=== PATIENT | male | born 1935 | race Caucasian/White ===

== ENCOUNTER → 2018-01-02 09:03 | Outpatient (CLI) | payer MEDICARE, SELFPAY ==
[2018-01-02 10:37] LABS: Absolute Lymphocyte Count 1.95 X10^3/ul (0.83-4.51); Absolute Neutrophil Count 4.1 X10^3/uL (2.0-7.7); Basophil# 0.04 X10^3/uL; Basophil% 0.6 % (0-1); Eosinophil# 0.45 X10^3/uL; Eosinophils% 6.4 % (0-5); Hematocrit 41.9 % (40-54); Hemoglobin 13.9 g/dl (13.0-16.5); Lymphocyte # 1.95 X10^3/ul (4.0); Lymphocyte % 27.8 % (19-41); Mean Corp Hgb Conc 33.2 g/gl (32-36); Mean Corpuscular Hgb 29.6 pg (27.0-32.0); Mean Corpuscular Volume 89.1 fL (80-94); Mean Platelet Vol. 10.8 fl (6.2-12.0); Monocyte# 0.44 X10^3/uL; Monocyte% 6.3 % (0-10); Neutrophil # 4.12 X10^3/uL (2.7-7.7); Neutrophil % 58.6 % (47-70); Platelet Count 191 K/mm3 (150-450); RBC Distribution Width CV 14.1 % (11.6-14.6); RBC Distribution Width SD 45.5 fl (35.1-43.9)
[2018-01-02 10:39] LABS: POSITIVE COUNT NO; POSITIVE DIFFERENTIAL NO; POSITIVE MORPHOLOGY NO
[2018-01-02 10:55] LABS: Anion Gap 8 (5-15); BUN 23 mg/dL (7-18); BUN/Creat Ratio 15.2 RATIO (10-20); Calcium,Total 9.3 mg/dL (8.5-10.1); Chloride 107 mmol/L (98-107); Creatinine, Serum 1.51 mg/dL (0.70-1.30); EST Glomerular Filtration Rate 47 mL/min (>60); Est Glom Filt Rate - Afr Amer 57 mL/min (>60); Ferritin 123 ng/mL (26-388); Glucose 104 mg/dL (74-106); Potassium 4.2 mmol/L (3.5-5.1); Sodium Level 140 mmol/L (136-145); T4 Free Direct 0.95 ng/dL (0.76-1.46); Thyroid Stim Hormone (TSH) 4.84 uIU/mL (0.358-3.74)
[2018-01-02 11:09] LABS: Microalbumin,Random Urine 11.5 mg/L (NO RANGE EST.); Microalbumin:Creatinine Ratio 10.6 mg/g CRE (<30 mg/g CRE)
== END ==
PROVIDERS: Visit Provider Family Medicine
DX: I10 Essential (primary) hypertension (principal); E03.9 Hypothyroidism, unspecified; G47.62 Sleep related leg cramps; Z79.01 Long term (current) use of anticoagulants
CPT/HCPCS: 36415; 80048; 82043; 82570; 82728; 83735; 84439; 84443; 85025

== ENCOUNTER → 2018-07-10 09:53 | Outpatient (CLI) | payer MEDICARE, SELFPAY ==
[2018-07-10 12:51] LABS: ALB/GLOB Ratio 1.3 RATIO (0.9-2.4); AST(SGOT) 17 U/L (15-37); Alanine Aminotransfer ALT/SGPT 30 U/L (16-61); Alkaline Phosphatase 68 U/L (45-117); Anion Gap 9 (5-15); BUN 21 mg/dL (7-18); BUN/Creat Ratio 14.7 RATIO (10-20); Calcium,Total 8.8 mg/dL (8.5-10.1); Chloride 110 mmol/L (98-107); Creatinine, Serum 1.43 mg/dL (0.70-1.30); EST Glomerular Filtration Rate 50 mL/min (>60); Est Glom Filt Rate - Afr Amer 61 mL/min (>60); Glucose 97 mg/dL (74-106); Potassium 4.6 mmol/L (3.5-5.1); Sodium Level 144 mmol/L (136-145); Thyroid Stim Hormone (TSH) 2.81 uIU/mL (0.358-3.74)
[2018-07-10 14:15] LABS: Microalbumin,Random Urine 17.2 mg/L (NO RANGE EST.); Microalbumin:Creatinine Ratio 11.4 mg/g CRE (<30 mg/g CRE)
== END ==
PROVIDERS: Family Provider Family Medicine; PCP Family Medicine; Visit Provider Family Medicine
DX: I10 Essential (primary) hypertension (principal)
CPT/HCPCS: 36415; 80053; 82043; 82570; 84443

== ENCOUNTER → 2019-04-10 09:42 | Outpatient (CLI) | payer MEDICARE, SELFPAY ==
[2016-10-22 13:18] VITALS: BMI 24.6
[2019-04-10 13:01] LABS: ALB/GLOB Ratio 1.1 RATIO (0.9-2.4); AST(SGOT) 18 U/L (15-37); Alanine Aminotransfer ALT/SGPT 29 U/L (16-61); Alkaline Phosphatase 65 U/L (45-117); Anion Gap 5 (5-15); BUN 18 mg/dL (7-18); BUN/Creat Ratio 12.4 RATIO (10-20); Calcium,Total 9.2 mg/dL (8.5-10.1); Chloride 107 mmol/L (98-107); Creatinine, Serum 1.45 mg/dL (0.70-1.30); EST Glomerular Filtration Rate 49 mL/min (>60); Est Glom Filt Rate - Afr Amer 60 mL/min (>60); Globulin 3.8 g/dL (2.2-4.2); Glucose 111 mg/dL (74-106); Potassium 4.4 mmol/L (3.5-5.1); Protein, Total 7.8 g/dL (6.4-8.2); Sodium Level 137 mmol/L (136-145); Thyroid Stim Hormone (TSH) 4.39 uIU/mL (0.358-3.74)
== END ==
PROVIDERS: Family Provider Family Medicine; PCP Family Medicine; Referring Provider Family Medicine; Visit Provider Nurse Practitioner Family
DX: E03.9 Hypothyroidism, unspecified (principal); I10 Essential (primary) hypertension
CPT/HCPCS: 36415; 80053; 84443

== ENCOUNTER → 2019-10-11 09:18 | Outpatient (CLI) | payer MEDICARE, SELFPAY ==
[2016-10-22 13:18] VITALS: BMI 24.6
[2019-10-11 12:46] LABS: Absolute Lymphocyte Count 1.74 X10^3/uL (0.83-4.51); Absolute Neutrophil Count 4.9 X10^3/uL (2.0-7.7); Basophil# 0.04 X10^3/uL; Basophil% 0.5 % (0-1); Eosinophil# 0.52 X10^3/uL; Eosinophils% 6.8 % (0-5); Hematocrit 42.7 % (40-54); Lymphocyte # 1.74 X10^3/ul (4.0); Lymphocyte % 22.8 % (19-41); Mean Corp Hgb Conc 32.8 g/dL (32-36); Mean Corpuscular Hgb 29.7 pg (27.0-32.0); Mean Corpuscular Volume 90.7 fL (80-94); Mean Platelet Vol. 11.3 fl (6.2-12.0); Monocyte# 0.44 X10^3/uL; Monocyte% 5.8 % (0-10); NRBC Flagged by Analyzer 0 % (0-5); Neutrophil # 4.86 X10^3/uL (2.7-7.7); Neutrophil % 63.7 % (47-70); Platelet Count 202 K/mm3 (150-450); RBC Distribution Width CV 13.5 % (11.6-14.6); RBC Distribution Width SD 44.9 fl (35.1-43.9); Red Blood Count 4.71 M/mm3 (4.6-6.2); White Blood Count 7.6 K/mm3 (4.4-11.0)
[2019-10-11 13:16] LABS: ALB/GLOB Ratio 1.2 RATIO (0.9-2.4); AST(SGOT) 17 U/L (15-37); Alanine Aminotransfer ALT/SGPT 29 U/L (16-61); Alkaline Phosphatase 61 U/L (45-117); Anion Gap 6 (5-15); BUN 18 mg/dL (7-18); BUN/Creat Ratio 12.9 RATIO (10-20); Calcium,Total 9.1 mg/dL (8.5-10.1); Chloride 109 mmol/L (98-107); Cholesterol 189 mg/dL (200); Creatinine, Serum 1.39 mg/dL (0.70-1.30); EST Glomerular Filtration Rate 52 mL/min (>60); Est Glom Filt Rate - Afr Amer 63 mL/min (>60); Free T3 3.1 pg/mL (2.18-3.98); Globulin 3.4 g/dL (2.2-4.2); Glucose 102 mg/dL (74-106); High Density Lipoprotein 35 mg/dL; Potassium 4.2 mmol/L (3.5-5.1); Protein, Total 7.4 g/dL (6.4-8.2); Sodium Level 140 mmol/L (136-145); Thyroid Stim Hormone (TSH) 4.85 uIU/mL (0.358-3.74); Triglycerides 135 mg/dL; Very Low Density Lipoprotein 27 mg/dL (5-40)
[2019-10-14 20:32] LABS: Anti-Thyroglobulin AB < 1.0 IU/mL (0.0-0.9); Thyroglobulin, Serum Qt. 37.8 ng/mL (1.4-29.2)
== END ==
PROVIDERS: PCP Family Medicine; Referring Provider Family Medicine; Visit Provider Family Medicine
DX: I10 Essential (primary) hypertension (principal); E03.9 Hypothyroidism, unspecified
CPT/HCPCS: 36415; 80053; 80061; 84432; 84443; 84481; 85025; 86800

== ENCOUNTER 2020-05-20 13:30 | Outpatient (RCR) | payer MEDICARE, SELFPAY ==
--- NOTE | 2020-04-22 14:53 | HP.PTEVAL ---
Patient's Visit Information VINCENT ANTUNEZ is a 84 year old M referred to Physical Therapy by Dr. Derrell Fortune MD with a diagnosis of Unsteady gait. Date of Evaluation: 04/22/20 Physical Therapist: Derrell Gallegos, DPT, OCS, CSCS - Visit Plan Frequency: 2x /Week Duration: 4-6 Weeks Plan: 2x/week x 4 -6 weeks to work on. 1. HS and gastroc stretching. 2. LE and postural strength then progress to HEP with pics. 3. Balance vestibular ex at counter and progress to HEP. 4. gait training. - Subjective Presents with daughter today, Agueda. Dr. Fortune sent him here and not sure why. Balance is bad. Had a stroke 5 yrs ago. Used quad cane in R since but gradually worsening. Fell on the ice yrs ago but not recently. Then daughter says fell in bathroom. He says he tripped on something. No pain. NO dizzyness. No neuropathy. Has walker but house not big enough for it. Uses it to walk to mailbox wh walker. Mailbox is 300 feet and can make it with cane or walker. Can't walk through [employer] to get groceries and uses cart. Gets tired if walks through [employer]. Not employed. Sits in chair most of day. Takes care of who is bedridden almost. He meets her daily needs but not a lot of housework. No regualr exercises, dtr says he sleeps alot. Hobbies include sleeping and taking care of . Used to enjoy gardening, now gets tired too easy. - Objective Walks with quad cane in R UE slow but steady on firm flat surface. Takes a second when he stands appporpriately to stragihten up. Exits adn enter s chair I. steps reciprocal with rail up and cane and rail down. HS and gastroc max tight. coordination to reciprocal toe tap mod deficits in LE. reflexes 1/3 patella adna chilles. Sensation LE WNl to gross light touch. Strength LE 4/5 but slow to respond at ankles adn ankle motor control poor. UE aROM WFL and strength at 4/5 - Balance Scores Functional Gait Assessment Score: 17 % Disability: 43.3400 CATSIB Score (Max score 120 seconds): 64 - Goals Goal 1:: Pt score 22/30 on FGA todiminish fall risk Goal Time Frame: 4-6 Weeks Goal 2:: Pt feel 50% better about mobility and safety. 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 Goal Time Frame: 4-6 Weeks Goal 4:: I approp HEP to minimize future problems Goal Time Frame: 4-6 Weeks - Rehabilitation Potential Physical Therapy Diagnosis: Unsteady gait, sedentarism. Rehabilitation Potential: Good - Anticipated Interventions Patient/Client Instruction: Educate patient on: Condition, Plan of Care For the Purpose of:: To improve muscle performance and motor function, To increase tolerance to activity/condition/position Therapeutic Exercise to Include: Strength training, Balance training, Flexibilty training, Gait and locomotor training For the Purpose of:: To increase tolerance to activity/condition/position, To improve ability of physical actions for home/community/work/leisure Thank you for the opportunity to evaluate your patient. For Medicare and Medicare HMO plans, please review the plan of care and approve it. It will need to be FAXED BACK to us at [phone] for Medicare purposes. For Medicare only, by signing this I certify the plan of care. Please let me know if there are questions or concerns regarding this plan of care. Physician Signature: Date:
--- NOTE | 2020-05-20 14:34 | HP.PTDCSUM ---
It has been my pleasure to treat VINCENT ANTUNEZ referred by Dr. Derrell Fortune MD, with the diagnosis of Unsteady gait for a total of 7 visit(s). Discharge Date: 05/20/20 Please see the following information for a summary of their discharge status. Subjective: Feel a little better fatigue cross. Getting around with [facility] all the time without falls. No stumbles, can lose balance balance when turning. No pain. Moving legs at home. Walks up and down stairs with railing. To Dr. Tong Arvizu 14. Objective/Function: FGA not significantly improved. Still needs LBQC adn very slow. Short term memory deficits. Questionable cognitive speed to drive but plenty of strength adn ROM in LE. Recommended against driving but educated on driver license reviewing officer test in [place] if still unwilling to accept this. Will chat as family and talk with doctor if it is recommended. Goal 1:: Pt score 22/30 on FGA todiminish fall risk Goal Progress: Goal Met Goal 2:: Pt feel 50% better about mobility and safety. 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 Goal 4:: I approp HEP to minimize future problems Goal Progress: Not Progressing Plan: d/c If there are questions or concerns regarding this patient's physical therapy, please feel free to call me at [phone]. Thank you for the referral of this patient. Sincerely, Derrell Gallegos, DPT, OCS, CSCS
== END 2020-05-20 19:00 | disposition home or self-care (01) ==
LOC: PT 13:30
PROVIDERS: PCP Family Medicine; Referring Provider Family Medicine; Visit Provider Family Medicine
DX: R26.81 Unsteadiness on feet (principal)
CPT/HCPCS: 97110; 97162; 97164

== ENCOUNTER → 2020-06-17 14:37 | Outpatient (CLI) | payer MEDICARE, SELFPAY ==
[2020-06-17 18:02] LABS: Absolute Lymphocyte Count 2.07 X10^3/uL (0.83-4.51); Absolute Neutrophil Count 4.4 X10^3/uL (2.0-7.7); Basophil# 0.03 X10^3/uL; Basophil% 0.4 % (0-1); Eosinophil# 0.38 X10^3/uL; Eosinophils% 5.1 % (0-5); Hematocrit 40.4 % (40-54); Lymphocyte # 2.07 X10^3/ul (4.0); Lymphocyte % 27.9 % (19-41); Mean Corp Hgb Conc 32.2 g/dL (32-36); Mean Corpuscular Hgb 29.3 pg (27.0-32.0); Mean Platelet Vol. 11.8 fl (6.2-12.0); Monocyte# 0.56 X10^3/uL; Monocyte% 7.5 % (0-10); NRBC Flagged by Analyzer 0 % (0-5); Neutrophil # 4.35 X10^3/uL (2.7-7.7); Neutrophil % 58.7 % (47-70); Platelet Count 231 K/mm3 (150-450); RBC Distribution Width CV 13.5 % (11.6-14.6); Red Blood Count 4.44 M/mm3 (4.6-6.2); White Blood Count 7.4 K/mm3 (4.4-11.0)
[2020-06-17 18:29] LABS: ALB/GLOB Ratio 1.1 RATIO (0.9-2.4); AST(SGOT) 16 U/L (15-37); Alanine Aminotransfer ALT/SGPT 22 U/L (16-61); Albumin, Serum 3.6 g/dL (3.2-5.0); Alkaline Phosphatase 73 U/L (45-117); Anion Gap 5 (5-15); BUN 26 mg/dL (7-18); BUN/Creat Ratio 17.1 RATIO (10-20); Calcium,Total 9.1 mg/dL (8.5-10.1); Chloride 105 mmol/L (98-107); Creatinine, Serum 1.52 mg/dL (0.70-1.30); EST Glomerular Filtration Rate 47 mL/min (>60); Est Glom Filt Rate - Afr Amer 56 mL/min (>60); Free T3 2.5 pg/mL (2.18-3.98); Globulin 3.4 g/dL (2.2-4.2); Glucose 113 mg/dL (74-106); Potassium 4.2 mmol/L (3.5-5.1); Sodium Level 138 mmol/L (136-145); T4 Free Direct 1.03 ng/dL (0.76-1.46); Thyroid Stim Hormone (TSH) 1.38 uIU/mL (0.358-3.74)
== END ==
PROVIDERS: Family Medicine
DX: E03.9 Hypothyroidism, unspecified (principal); I50.9 Heart failure, unspecified
CPT/HCPCS: 36415; 80053; 84439; 84443; 84481; 85025

== ENCOUNTER → 2020-10-26 11:41 | Outpatient (CLI) | payer MEDICARE, SELFPAY ==
[2016-10-22 13:18] VITALS: BMI 24.6
[2020-10-26 15:12] LABS: Absolute Lymphocyte Count 2.16 X10^3/uL (0.83-4.51); Absolute Neutrophil Count 5.1 X10^3/uL (2.0-7.7); Basophil# 0.04 X10^3/uL; Basophil% 0.5 % (0-1); Eosinophil# 0.81 X10^3/uL; Eosinophils% 9.2 % (0-5); Hematocrit 43.6 % (40-54); Hemoglobin 14.4 g/dL (13.0-16.5); Lymphocyte # 2.16 X10^3/ul (4.0); Lymphocyte % 24.5 % (19-41); Mean Corpuscular Hgb 29.6 pg (27.0-32.0); Mean Corpuscular Volume 89.7 fL (80-94); Mean Platelet Vol. 10.8 fl (6.2-12.0); Monocyte# 0.62 X10^3/uL; NRBC Flagged by Analyzer 0 % (0-5); Neutrophil # 5.14 X10^3/uL (2.7-7.7); Neutrophil % 58.5 % (47-70); Platelet Count 243 K/mm3 (150-450); RBC Distribution Width CV 13.4 % (11.6-14.6); RBC Distribution Width SD 43.7 fl (35.1-43.9); Red Blood Count 4.86 M/mm3 (4.6-6.2); White Blood Count 8.8 K/mm3 (4.4-11.0)
[2020-10-26 15:39] LABS: ALB/GLOB Ratio 1.1 RATIO (0.9-2.4); AST(SGOT) 17 U/L (15-37); Alanine Aminotransfer ALT/SGPT 20 U/L (16-61); Albumin, Serum 3.8 g/dL (3.2-5.0); Alkaline Phosphatase 78 U/L (45-117); Anion Gap 6 (5-15); BUN 24 mg/dL (7-18); Calcium,Total 9.6 mg/dL (8.5-10.1); Chloride 105 mmol/L (98-107); Creatinine, Serum 1.41 mg/dL (0.70-1.30); EST Glomerular Filtration Rate 51 mL/min (>60); Est Glom Filt Rate - Afr Amer 61 mL/min (>60); Globulin 3.5 g/dL (2.2-4.2); Glucose 102 mg/dL (74-106); Potassium 4.5 mmol/L (3.5-5.1); Protein, Total 7.3 g/dL (6.4-8.2); Sodium Level 140 mmol/L (136-145); T4 Free Direct 0.85 ng/dL (0.76-1.46); Thyroid Stim Hormone (TSH) 1.46 uIU/mL (0.358-3.74)
== END ==
PROVIDERS: PCP Family Medicine; Referring Provider Family Medicine; Visit Provider Family Medicine
DX: E03.9 Hypothyroidism, unspecified (principal); I63.9 Cerebral infarction, unspecified; I50.9 Heart failure, unspecified
CPT/HCPCS: 36415; 80053; 84439; 84443; 85025

== ENCOUNTER → 2022-02-10 | Outpatient (CLI) | payer MEDICARE, SELFPAY ==
[2022-02-10 15:09] LABS: Bacteria 0 SEEN /hpf (None Seen); Mucous, Urine 0 SEEN /hpf (<or=2+); Red Blood Cells-Urine 0 SEEN /hpf (0-5); Squamous Epithelial Cells - UA 0 SEEN /hpf (0-5); White Blood Cells 0 SEEN /hpf (0-5)
[2022-02-10 15:15] LABS: Glucose, Dipstick Normal (Normal); Ketone-Dipstick Negative (Negative); Leukocyte Esterase-Dipstick Negative /ul (Negative); Nitrite-Dipstick Negative (Negative); Occult Blood-Urine Negative /ul (Negative); Protein-Dipstick Negative (Negative); Urine Bilirubin Dipstick Negative (Negative); Urine Urobilinogen Normal (Normal)
[2022-02-10 15:25] LABS: Color, Urine Yellow (Yellow); Urine Clarity Clear (Clear)
== END | disposition home or self-care (01) ==
LOC: LABSPEC 14:59
PROVIDERS: PCP Family Medicine; Visit Provider Family Medicine
DX: R32 Unspecified urinary incontinence (principal)
CPT/HCPCS: 81001; 87086; 87088

== ENCOUNTER → 2022-05-12 | Outpatient (CLI) | payer MEDICARE, SELFPAY ==
[2022-05-12 15:16] LABS: Color, Urine Straw (Yellow); Glucose, Dipstick Normal (Normal); Ketone-Dipstick Negative (Negative); Leukocyte Esterase-Dipstick Negative /ul (Negative); Nitrite-Dipstick Negative (Negative); Occult Blood-Urine Negative /ul (Negative); Protein-Dipstick Negative (Negative); Specific Gravity, Urine 1.015 (1.002-1.030); Urine Bilirubin Dipstick Negative (Negative); Urine Clarity Clear (Clear); Urine Urobilinogen Normal (Normal)
== END | disposition home or self-care (01) ==
LOC: LABSPEC 14:07
PROVIDERS: PCP Family Medicine; Visit Provider Family Medicine
DX: R35.0 Frequency of micturition (principal)
CPT/HCPCS: 81002; 87086; 87088

== ENCOUNTER → 2022-06-21 | Outpatient (CLI) | payer MEDICARE, SELFPAY ==
[2022-06-21 15:14] LABS: Absolute Lymphocyte Count 1.59 X10^3/uL (0.83-4.51); Absolute Neutrophil Count 4.4 X10^3/uL (2.0-7.7); Basophil# 0.04 X10^3/uL; Basophil% 0.6 % (0-1); Eosinophil# 0.53 X10^3/uL; Eosinophils% 7.4 % (0-5); Hematocrit 39.6 % (40-54); Hemoglobin 13.8 g/dL (13.0-16.5); Lymphocyte # 1.59 X10^3/ul (0.83-4.51); Lymphocyte % 22.2 % (19-41); Mean Corp Hgb Conc 34.8 g/dL (32-36); Mean Corpuscular Hgb 29.7 pg (27.0-32.0); Mean Corpuscular Volume 85.2 fL (80-94); Mean Platelet Vol. 10.3 fl (6.2-12.0); Monocyte# 0.61 X10^3/uL; Monocyte% 8.5 % (0-10); NRBC Flagged by Analyzer 0 % (0-5); Neutrophil # 4.38 X10^3/uL (2.7-7.7); Platelet Count 235 K/mm3 (150-450); RBC Distribution Width CV 13.2 % (11.6-14.6); RBC Distribution Width SD 41.6 fl (35.1-43.9); Red Blood Count 4.65 M/mm3 (4.6-6.2); White Blood Count 7.2 K/mm3 (4.4-11.0)
[2022-06-21 16:19] LABS: ALB/GLOB Ratio 1.2 RATIO (0.9-2.4); AST(SGOT) 13 U/L (15-37); Alanine Aminotransfer ALT/SGPT 17 U/L (16-61); Albumin, Serum 3.7 g/dL (3.2-5.0); Alkaline Phosphatase 87 U/L (45-117); Anion Gap 7 (5-15); BUN 15 mg/dL (7-18); BUN/Creat Ratio 12.2 RATIO (10-20); Calcium,Total 9.1 mg/dL (8.5-10.1); Chloride 99 mmol/L (98-107); Creatinine, Serum 1.23 mg/dL (0.70-1.30); EST Glomerular Filtration Rate 59 mL/min (>60); Est Glom Filt Rate - Afr Amer 72 mL/min (>60); Globulin 3.2 g/dL (2.2-4.2); Glucose 110 mg/dL (74-106); Potassium 4.3 mmol/L (3.5-5.1); Protein, Total 6.9 g/dL (6.4-8.2); Sodium Level 131 mmol/L (136-145); Thyroid Stim Hormone (TSH) 1.42 uIU/mL (0.358-3.74)
== END | disposition home or self-care (01) ==
LOC: MFPLAB 13:50
PROVIDERS: PCP Family Medicine; Referring Provider Family Medicine; Visit Provider Family Medicine
DX: N40.0 Benign prostatic hyperplasia without lower urinary tract symptoms (principal); E03.9 Hypothyroidism, unspecified
CPT/HCPCS: 36415; 80053; 84443; 85025

== ENCOUNTER 2022-08-06 11:58 | Observation (INO) | payer MEDICARE, SELFPAY ==
[2022-08-06] VITALS (7 sets, daily range): BP systolic 119–191; BP diastolic 45–81; PULSE 68–83; RESP 18–26; TEMP 36.6–37.2; O2SAT 92–97; BMI 27.7; BMI 24.7
--- NOTE | 2022-08-06 12:14 | CT_ITS ---
INDICATION: ams EXAMINATION: CT BRAIN - CT Head or Brain W/O Contrast Injection TECHNIQUE: Multiple axial images were obtained of the head without intravenous contrast. A radiation dose optimization technique was used for this scan. IV Contrast dosage and agent: None. COMPARISON: None available. FINDINGS: BRAIN PARENCHYMA: No intra- or extra-axial hemorrhage. No evidence of acute infarct. No intracranial mass or mass effect. There is preservation of the tolentino/white matter interface. There is a low-attenuation focus within the right basal ganglia with old lacunar infarct. Posterior fossa structures are unremarkable. CSF SPACES: Appropriate for age. No hydrocephalus. Basal cisterns are patent. CALVARIUM, SKULL BASE, PARANASAL SINUSES AND MASTOID AIR CELLS: There is mild opacification of the ethmoid and visualized left maxillary sinuses consistent with a history of sinusitis. No discrete lytic or blastic abnormalities. ORBITS: Both globes, extraocular muscles, optic nerves and retrobulbar fat appear unremarkable. CT/Brain/Head without Contrast IMPRESSION: No acute intracranial process. Electronically Signed: Lydia Diane MD at 13:07 EST ,
--- NOTE | 2022-08-06 12:14 | RAD_ITS ---
INDICATION: Congestive heart failure EXAMINATION/TECHNIQUE: X-RAY - XR Chest 1 View COMPARISON: October 22, [address] dated October 11, 2018. FINDINGS: LINES/DEVICES: None. LUNGS: No consolidation, edema or effusion. No pneumothorax. There is a stable nodular density projecting over the right lower lung which may be secondary to an old rib fracture. MEDIASTINUM AND CARDIOVASCULAR STRUCTURES: Cardiac silhouette not enlarged. Central airways and mediastinal contour are unremarkable. BONES AND SOFT TISSUES: Stable. RAD/Chest 1 View (Portable) IMPRESSION: No radiographic evidence of acute cardiopulmonary disease. Electronically Signed: Lydia Diane MD at 13:24 EST ,
--- NOTE | 2022-08-06 12:15 | EKG12_ITS ---
Test Reason : FALL Blood Pressure : / mmHG Vent. Rate : 088 BPM Atrial Rate : 088 BPM P-R Int : 164 ms QRS Dur : 100 ms QT Int : 386 ms P-R-T Axes : 005 -44 080 degrees QTc Int : 467 ms Sinus rhythm with Premature atrial complexes Left axis deviation Nonspecific ST abnormality Abnormal ECG Confirmed by TABITHA VANG, TELLO ([id number]), sports editor FRANCHESKA MACEDO ([id number]) on 08/09/2022 12:28:03 PM Referred By: JOSE ALFREDO Confirmed By:TELLO LU MD
--- NOTE | 2022-08-06 12:17 | EDS_ITS ---
HPI HPI - Fall History of Present Illness Chief Complaint: Fall Informant: patient and family Narrative Narrative: 86-year-old male presenting to the emergency room with his family chief complaint of frequent falls. Patient is in palliative care DNR CC. They have been concerned about whether or not he is going to be placed for some time. They have been pain someone to come into the house a few times a day. He fell last night and EMS had to come out. He fell again today and a neighbor helped him up. The patient is becoming aggressive when they ask him to shower and refuses to let people help clean him up. Unknown last tetanus Tetanus Immunization: Unknown [facility] Medical History (Updated 08/06/22 @ 12:[address] Troy Escamilla DO) CHF (congestive heart failure) Dementia HTN (hypertension) Home Medications carvedilol 25 mg tablet 25 mg PO BID 08/06/22 [History Last Taken Unknown] fluoxetine 20 mg capsule 20 mg PO DAILY 08/06/22 [History Last Taken Unknown] garlic 1,000 mg capsule 1,000 mg PO TID 08/06/22 [History Last Taken Unknown] lorazepam 1 mg tablet 0.5 mg PO PRN PRN anxiety or agitation 08/06/22 [History Last Taken Unknown] lorazepam 1 mg tablet 1 mg PO TID 08/06/22 [History Last Taken Unknown] tamsulosin 0.4 mg capsule 0.4 mg PO DINNER 08/06/22 [History Last Taken Unknown] Allergy/AdvReac Type Severity Reaction Status Date / Time Influenza Virus Vaccines Allergy Anaphylaxis Verified 08/06/22 12:00 lisinopril Allergy Angioedema Verified 08/06/22 12:00 Social History (Updated 08/06/22 @ 12:[address] Troy Escamilla DO) Smoking Status: Former smoker substance use type: does not use ROS ROS ED ROS Narrative Generalized weakness Constitutional Constitutional ED: Denies chills or weight loss Eyes Eyes: Denies change in vision or diplopia ENT ENT ED: Denies ear pain, rhinorrhea or sore throat Cardiovascular Cardiovascular: Denies chest pain, orthopnea, palpitations or racing heartbeat Respiratory/Chest Respiratory/Chest: Denies cough, dyspnea or orthopnea Gastrointestinal Gastrointestinal: Denies abdominal pain, diarrhea, nausea or vomiting Genitourinary Genitourinary ED: Denies dysuria, hematuria or urinary frequency Musculoskeletal Musculoskeletal: Denies arthralgias or myalgias Integumentary Denies abscess or rash Neurologic Neurologic: Denies headache(s) or weakness Psychiatric Psychiatric: Denies anxiety, depression, suicidal ideation or suicidal thoughts Endocrine Endocrinology: Denies polydipsia, polyphagia or polyuria Allergic/Immunologic Allergic/Immunologic ED: Denies mouth swelling, tongue swelling or urticaria EXAM Physical Exam Const Vital Signs: 08/06/22 12:00 Temperature 98.3 F Temperature Source Oral Pulse Rate 83 Respiratory Rate 26 H Blood Pressure 191/81 H Blood Pressure Mean 117 Pulse Ox 95 Oxygen Delivery Method Room Air Positive well nourished and well developed General Appearance ED: well developed HEENT Reports normocephalic, head/scalp atraumatic and moist mucous membranes Eyes PERRL and EOMs intact bilaterally Neck no lymphadenopathy, supple and no JVD Resp normal respiratory effort and clear to auscultation bilaterally Cardio regular rate, regular rhythm and no murmurs GI normal to inspection, nondistended, normoactive bowel sounds and non-tender Palpation: soft Back/Spine no CVA tenderness and normal ROM Extremity Extremity Narrative: There is a superficial abrasion to the posterior right elbow General Extremety ED: Negative for edema General Extremity: Negative for edema Neuro CN's II-XII intact bilaterally Sensorium / Orientation: alert, oriented to person and oriented to place; Negative for oriented to time Motor Exam: strength 5/5 throughout Psych mental status grossly normal Mood & Affect: Negative for depressed or tearful Skin no rashes or lesions noted MDM MDM MDM Narrative Medical decision making narrative: Head CT shows no acute process. No interpretation of chest x-ray is no acute process. Basic blood sugar is sodium of 129 creatinine 1.55 glucose 152. He is not anemic white count is 7.8. Urinalysis is pending. It is clear the patient needs some placement of the family is unable to care for him at home. Lab Data Attestation: I reviewed the patient's lab results. Labs: Laboratory Results - last 24 hr 08/06/22 08/06/22 12:23 12:23 WBC 7.8 RBC 5.13 Hgb 14.6 Hct 42.8 MCV 83.4 MCH 28.5 MCHC 34.1 RDW Std Deviation 39.8 RDW Coeff of Phillip 13.2 Plt Count 203 MPV 10.1 Immature Gran % (Auto) 0.400 Neut % (Auto) 76.1 H Lymph % (Auto) 16.3 L Colbert % (Auto) 7.1 Eos % (Auto) 0.0 Baso % (Auto) 0.1 Absolute Neuts (auto) 5.9 Absolute Lymphs (auto) 1.27 Nucleated RBC % 0 Sodium 129 L Potassium 4.0 Chloride 96 L Carbon Dioxide 24.0 Anion Gap 9 BUN 24 H Creatinine 1.55 H Estim Creat Clear Calc 28.11 Est GFR (MDRD) Af Amer 55 L Est GFR (MDRD) Non-Af 45 L BUN/Creatinine Ratio 15.5 Glucose 152 H Calcium 8.5 Total Bilirubin 0.50 Direct Bilirubin 0.12 AST 59 H ALT 30 Alkaline Phosphatase 59 Troponin I High Sens 34 Total Protein 7.2 Albumin 3.6 Globulin 3.6 Radiography Diagnostic Testing: Clinical Impression(s) from Imaging Studies Brain CT 08/06/22 12:14 IMPRESSION: No acute intracranial process. Electronically Signed: Lydia Diane MD at 13:07 EST , EKG Initial EKG: Attestation: I personally reviewed and interpreted this EKG as follows: Comments: Sinus rhythm with a ventricular rate of 88 bpm and noted PACs Discharge Plan Dx/Rx/DC Orders Clinical Impression: Dementia, Frequent falls, Adult failure to thrive Disposition Disposition: [facility]
[2022-08-06 12:35] LABS: Absolute Lymphocyte Count 1.27 X10^3/uL (0.83-4.51); Absolute Neutrophil Count 5.9 X10^3/uL (2.0-7.7); Basophil# 0.01 X10^3/uL; Basophil% 0.1 % (0-1); Hematocrit 42.8 % (40-54); Hemoglobin 14.6 g/dL (13.0-16.5); Lymphocyte # 1.27 X10^3/ul (0.83-4.51); Lymphocyte % 16.3 % (19-41); Mean Corp Hgb Conc 34.1 g/dL (32-36); Mean Corpuscular Hgb 28.5 pg (27.0-32.0); Mean Corpuscular Volume 83.4 fL (80-94); Mean Platelet Vol. 10.1 fl (6.2-12.0); Monocyte# 0.55 X10^3/uL; Monocyte% 7.1 % (0-10); NRBC Flagged by Analyzer 0 % (0-5); Neutrophil # 5.91 X10^3/uL (2.7-7.7); Neutrophil % 76.1 % (47-70); Platelet Count 203 K/mm3 (150-450); RBC Distribution Width CV 13.2 % (11.6-14.6); RBC Distribution Width SD 39.8 fl (35.1-43.9); Red Blood Count 5.13 M/mm3 (4.6-6.2); White Blood Count 7.8 K/mm3 (4.4-11.0)
--- NOTE | 2022-08-06 12:52 | ED.RN ---
Pt's step son Bennie who is POA reports that they are concerned that pt needs placement due to progressive decline. Also states that pt has a DNR that he signed through Palliative Care, presents copy to this nurse, placed on chart.
[2022-08-06 12:59] LABS: AST(SGOT) 59 U/L (15-37); Alanine Aminotransfer ALT/SGPT 30 U/L (16-61); Albumin, Serum 3.6 g/dL (3.2-5.0); Alkaline Phosphatase 59 U/L (45-117); Anion Gap 9 (5-15); BUN 24 mg/dL (7-18); BUN/Creat Ratio 15.5 RATIO (10-20); Bilirubin, Direct 0.12 mg/dL (0.00-0.30); Calcium,Total 8.5 mg/dL (8.5-10.1); Chloride 96 mmol/L (98-107); Creatinine, Serum 1.55 mg/dL (0.70-1.30); EST Glomerular Filtration Rate 45 mL/min (>60); Est Glom Filt Rate - Afr Amer 55 mL/min (>60); Estimated Creatinine Clearance 28.11 ml/min; Globulin 3.6 g/dL (2.2-4.2); Glucose 152 mg/dL (74-106); Protein, Total 7.2 g/dL (6.4-8.2); Sodium Level 129 mmol/L (136-145); Troponin-I HS 34 pg/mL (3.0-78.0)
--- NOTE | 2022-08-06 13:27 | HP.PCM.HOS_ITS ---
HPI - General General Date of Admission: 08/06/22 Date of Service: 08/06/22 Chief Complaint: Frequent falls, Adult FTT. HPI Narrative The patient is an 86 y/o M w/ PMHx: CKD stage III unclear subtype, BPH, Anxiety and Depression, Dementia unclear type with unclear behavioral disturbance history, Former tobacco use w/ COPD, Systolic CHF/Ischemic Cardiomyopathy (EF 2014 45% ECHO->2014 cardiac catheterization EF25%), 2014 Cardiac catheterization complicated by post-catheterization acute R sided hemiparesis/Acute CVA w/ TPA administration, Carotid disease, CAD, HTN, Psoriasis, Hypothyroidism who presents to the [facility] ED on 08/06/22 with history of living alone with significant frequent falls recently transitioned into palliative care with DNRCC status with fall the evening prior requiring EMS to come out and again following day of presentation requiring neighbor to help frequently now refusing to do anything that requires help including showering or assistance and getting cleaned up prompting family to bring him into the ED for assistance in placement. Patient from recent falls only notes that he should not his right elbow otherwise denies any trauma or pain to any extremity or joint. Work-up in the ED included T98.3, heart rate 83, BP 191/81, respiratory rate 26, 95% room air, CBC with WC 7.8, hemoglobin 14.6, platelet 203 without marked shift, CMP with sodium 129, chloride 96, BUN/creatinine 24/1.55, glucose 152, AST 59 otherwise [place]ock profile not marked appearing, troponin 34, CT of the brain with no acute intracranial process with evidence of prior right basal ganglia with old lacunar infarct, chest x-ray with no acute cardiopulmonary finding, urinalysis requested and pending upon evaluation of patient. Patient denies however any urinary symptoms. Discussed frankly current patient presentation, ongoing falls and difficulty caring for himself but unwillingness to participate with home therapies. Patient is interested in discussing potential transfer to facility with hospice which was also discussed with family and amenable plan. [facility] Medical History (Updated 08/06/22 @ 14:[address] Linda Jones MD) Anxiety and depression BPH (benign prostatic hyperplasia) Carotid arterial disease CKD (chronic kidney disease), stage III Dementia Former tobacco use History of CVA (cerebrovascular accident) HTN (hypertension) Ischemic cardiomyopathy Systolic CHF Home Medications carvedilol 25 mg tablet 25 mg PO BID 08/06/22 [History Last Taken Unknown] fluoxetine 20 mg capsule 20 mg PO DAILY 08/06/22 [History Last Taken Unknown] garlic 1,000 mg capsule 1,000 mg PO TID 08/06/22 [History Last Taken Unknown] lorazepam 1 mg tablet 0.5 mg PO PRN PRN anxiety or agitation 08/06/22 [History Last Taken Unknown] lorazepam 1 mg tablet 1 mg PO TID 08/06/22 [History Last Taken Unknown] tamsulosin 0.4 mg capsule 0.4 mg PO DINNER 08/06/22 [History Last Taken Unknown] Allergy/AdvReac Type Severity Reaction Status Date / Time Influenza Virus Vaccines Allergy Anaphylaxis Verified 08/06/22 12:00 lisinopril Allergy Angioedema Verified 08/06/22 12:00 Family History (Updated 08/06/22 @ 13:[address] Linda Jones MD) Mother Cancer Father CAD (coronary artery disease) Heart disease Surgical History (Updated 08/06/22 @ 13:[address] Linda Jones MD) H/O cardiac catheterization History of appendectomy History of prostate surgery Social History (Updated 08/06/22 @ 13:[address] Linda Jones MD) household members: none Smoking Status: Former smoker alcohol intake: never substance use type: does not use ROS ROS Narrative Admission Review of Systems: CONSTITUTIONAL: No fever, chills, + weakness or fatigue, weight loss but per family eats minimal. HEENT: Eyes: No visual loss, blurred vision, double vision or yellow sclerae. Ears, Nose, Throat: No hearing loss, sneezing, congestion, runny nose or sore throat. SKIN: + Psoriasis history, right anderson and elbow, staged occasional ecchymoses. CARDIOVASCULAR: No chest pain, chest pressure or chest discomfort, palpitations, edema, orthopnea, syncopal events. RESPIRATORY: No shortness of breath, cough or sputum, wheezing, hemoptysis. GASTROINTESTINAL: + anorexia, No nausea, vomiting or diarrhea, abdominal pain, melena, BRBPR. GENITOURINARY: No dysuria, frequency, urgency or retention. NEUROLOGICAL: + Dementia underlying, frequent falls, chronic balance issues, No headache, dizziness, syncope, paralysis, numbness or tingling in the e xtremities, focal weakness, change in bowel or bladder control, seizure. MUSCULOSKELETAL: No muscle, back pain, joint pain or stiffness. HEMATOLOGIC: No anemia, bleeding or bruising. LYMPHATICS: No enlarged nodes. No history of splenectomy. PSYCHIATRIC:+ history of depression or anxiety. ENDOCRINOLOGIC: No reports of sweating, cold or heat intolerance. No polyuria or polydipsia. ALLERGIES: + history of anaphylaxis with influenza virus vaccine as well as angioedema with lisinopril. Vital Signs Vital Signs Vital Signs: 08/06/22 12:00 Temperature 98.3 F Temperature Source Oral Pulse Rate 83 Respiratory Rate 26 H Blood Pressure 191/81 H Blood Pressure Mean 117 Pulse Ox 95 Oxygen Delivery Method Room Air Weight Weight: 161 lb 9.581 oz Body Mass Index (BMI) 27.7 Physical Exam Narrative Physical Examination: General: Awake, alert, oriented to self, place and some recent events, does have underlying dementia, currently cooperative although family notes he can be become agitated, seated upright in ED bed, no acute distress and currently willing to be admitted with plan for potential hospice transition. Skin: Normal color, normal turgor, no icterus, no cyanosis except occasional staged ecchymoses, skin right elbow. HEENT: AT/NC, EOMI, PERRLA, mildly dry MM, no carotid bruits or JVD noted. Lungs: Mildly diminished, greater bases, appropriate effort, no rales, ronchi or wheezing. Heart: Regular rate and rhythm; no gallop, rub audible. Abdomen: Soft, NTTP, ND, hyperactive BS, no HSM. Extremities: No cyanosis, clubbing, or edema, see skin. Neurological: Patient awake, alert, oriented as noted, cognitive function suspect likely baseline intact with underlying dementia; pupils equally reactive to light and accommodation, cranial nerves grossly normal, moving all 4 extremities, no focal deficits, strength moderately to severely global decrease, has been progressing. Psychiatric: Affect appears fatigued otherwise normal, no acute evidence of depressive or anxiety feelings but does have underlying history and per discussion with family does become agitated. Results Lab / Micro Data Result Diagrams: 08/06/22 12:23 08/06/22 12:23 Labs: Laboratory Results - last 24 hr 08/06/22 12:23: WBC 7.8, RBC 5.13, Hgb 14.6, Hct 42.8, MCV 83.4, MCH 28.5, MCHC 34.1, RDW Std Deviation 39.8, RDW Coeff of Phillip 13.2, Plt Count 203, MPV 10.1, Immature Gran % (Auto) 0.400, Neut % (Auto) 76.1 H, Lymph % (Auto) 16.3 L, [place] % (Auto) 7.1, Eos % (Auto) 0.0, Baso % (Auto) 0.1, Absolute Neuts (auto) 5.9, Absolute Lymphs (auto) 1.27, Nucleated RBC % 0 08/06/22 12:23: Sodium 129 L, Potassium 4.0, Chloride 96 L, Carbon Dioxide 24.0, Anion Gap 9, BUN 24 H, Creatinine 1.55 H, Estim Creat Clear Calc 28.11, Est GFR (MDRD) Af Amer 55 L, Est GFR (MDRD) Non-Af 45 L, BUN/Creatinine Ratio 15.5, Glucose 152 H, Calcium 8.5, Total Bilirubin 0.50, Direct Bilirubin 0.12, AST 59 H, ALT 30, Alkaline Phosphatase 59, Troponin I High Sens 34, Total Protein 7.2, Albumin 3.6, Globulin 3.[address] 08/06/22 12:14 IMPRESSION: No acute intracranial process. Electronically Signed: Lydia Diane MD at 13:07 EST Reading Location ID and State: [facility] / ID Tel , Service support , Chest X-Ray 08/06/22 12:14 IMPRESSION: No radiographic evidence of acute cardiopulmonary disease. Electronically Signed: Lydia Diane MD at 13:24 EST , Assessment & Plan Assessment/Plan (1) Adult failure to thrive: PLAN: Plan The patient is an 86 y/o M w/ PMHx: CKD stage III unclear subtype, BPH, Anxiety and Depression, Dementia unclear type with unclear behavioral disturbance history, Former tobacco use w/ COPD, Systolic CHF/Ischemic Cardiomyopathy, Hx CVA w/ TPA administration, Carotid disease, CAD, HTN, Psoriasis, Hypothyroidism who presents to the [facility] ED on 08/06/22 with history of living alone with significant frequent falls recently transitioned into palliative care with DNRCC status with fall the evening prior requiring EMS to come out and again following day of presentation requiring neighbor to help frequently now refusing to do an ything that requires help including showering or assistance and getting cleaned up prompting family to bring him into the ED for assistance in placement. #1. Frequent Falls, Debility, FTT Adult: Patient has progressively been declining, has been living by himself and very reticent to any interventions or assistance but over the last 24 hours has fallen several times requiring even EMS evaluation, will admit to medical surgical floor, maintain on fall precautions, PT, OT, case management consultation for discharge planning as well as per discussion with patient and family request for hospice at facility evaluation potentially [facility]. #2. Hyponatremia, suspected mild hypovolemia: Admission sodium 129, chloride 96, primarily in the past has been normal level, will very judiciously hydrate given underlying CHF previous history noted, repeat CMP in a.m and if appropriate level for him would defer further labs at that time given planned transition to hospice at facility. #3. Hyperglycemia: Mild, glucose 152, given DNR-CC status and patient current preference to transition to Hospice, will defer further work-up. #4. CAD: 08/13/2015 [facility] cardiac catheterization following transfer at that time from [facility] with abnormal stress testing w/ severe 3-vessel disease was found w/ LAD 80% disease throughout 2/3 of the vessel and EF 25% w/ previous stress echo revealing an EF of 45%, plan at that time had been CABG vs. medical therapy; however, post-cath suffered acute CVA. Transitioned to DNR-CC status, currently plan to consult hospice for facility transition. Will continue asa, hypertension regimen, defer statin per patient preference. He has been taken off medications over the years per his preference. #5. History CVA: Unfortunately happened postcardiac catheterization with sudden onset right sided hemiparesis with tPA administration at that time and transition following to Coumadin therapy with complete resolution of his symptoms and transition to aspirin, Plavix, Coumadin, appropriate hypertensive regimen as well as statin therapy at that time, MRI at that time with scattered small foci representing embolic process, MRA with stenosis of basilar artery and areas of narrowing in the LVA and right ICA, MRI of the neck at that time with multiple areas of stenosis in the distal vertebral artery and basilar artery as well as atherosclerosis of the right carotid. Patient per records from [facility] had transiently required a mechanical soft diet with honey thickened liquids however he eventually progressed to regular diet without issues per report. #6. Hypertension, Uncontrolled: Currently will continue coreg, BP notably elevated, will add isosorbide only which he has been on in the past to achieve some modicum of control, but again, awaiting hospice at facility transition so beyond that patient preference may be to discontinue medications. PRN IV hydral azine. #7. Hyperlipidemia: Not on statin, previously had been, defer given planned hospice transition. #8. Chronic Kidney Disease Stage III, unclear subtype: Admission BUN/Cr 24/1.55, baseline renal function appears primarily 1.3-1.5, stay, repeat BMP in AM. #9. Carotid Disease: As noted under Hx CVA, will continue asa only, not on statin, HTN regimen as noted. #10. Chart reported Hx Hypothyroidism: Not on regimen, TSH will be added to labs, only because certainly if very abnormal, although not expected could be addressed and lead to improved comfort. #11. Anxiety and Depression: From discussion with family patient does become agitated intermittently, we will continue patient on fluoxetine as well as Ativan regimen cautiously. #12. Dementia unclear type: From discussion with family and description likely does have some underlying behavioral disturbance history, complicates pr esentation, maintain on low-dose Ativan as noted as needed and if necessary may consider adding Seroquel if needed low-dose. #13. Former tobacco use w/ COPD: Not currently on any regimen, as needed albuterol if necessary. #14. Systolic CHF/Ischemic Cardiomyopathy: Patient previously EF 2014 45% ECHO- >2015 cardiac catheterization EF25%, was in 2015 upon his [facility] discharge on appropriate regimen however he is since de-escalated off therapy with transition to DNRCC status, judiciously hydrating given underlying history, continued on aspirin, Coreg, defer any other regimen addition given patient preference which was also discussed with family. #15. BPH: Continue patient home Flomax regimen. #16. DVT prophylaxis: Will hold on additional SCDs or chemoprophylaxis given DNRCC status and planned facility hospice transition, also may upset patient per discussion with family. Patient also notes less intervention best. #17. CODE status: Patient ZEYAD is his son and living will is currently in place. Previously his healthcare power of nut grader had been his however she is sometime ago. Discussed CODE status at length including difference between FULL code, DNR-CCA and DNR-CC status. Following discussions about the differences in these status, requested DNR-CC. The family and patient are interested in Hospice at Facility. Advanced Care Planning Face to Face Time: 16 minutes. Charges/Coding Visit Charges OBSV E&M: 73325 Initial observation care L2 Procedures Hospitalists Procedures: 44125 Advncd Care Plan 30 Min
--- NOTE | 2022-08-06 13:35 | NURSING ---
MED SURG WHITE DEMENTIA, FAILURE TO THRIVE
[2022-08-06 14:45] LABS: Thyroid Stim Hormone (TSH) 0.48 uIU/mL (0.358-3.74)
--- NOTE | 2022-08-06 15:33 | ED.RN ---
Pt's step son Bennie took his cell phone home to charge it and will bring it back tomorrow. Also left a pack of hearing aide batteries for patient.
[2022-08-06] MEDS: Isosorbide Mononitrate 30 MG Tablet PO (17:14)
[2022-08-06] MEDS: 0.9% Saline Lock 10 ML Syringe IV (17:14)
[2022-08-06] MEDS: Tamsulosin HCl 0.4 MG Capsule PO (17:14)
[2022-08-06] MEDS: Ensure Plus High Protein 120 ML LIQUID PO (17:14)
[2022-08-06] MEDS: 0.9% Normal Saline 1,000 ML 100 ML IV (17:14)
[2022-08-06] MEDS: LORazepam 1 MG Tablet PO ×2 (17:15→21:54)
[2022-08-06] MEDS: Acetaminophen 325 MG Tablet 650 MG PO (21:53)
[2022-08-06] MEDS: Carvedilol 25 MG Tablet PO (21:54)
[2022-08-06] MEDS: Menthol/Lanolin/Calamine/Znox 113 GM Tube 1 APPLIC TOPICAL (22:57)
[2022-08-06 23:07] LABS: Bacteria 0 SEEN /hpf (None Seen); Mucous, Urine 0 SEEN /hpf (<or=2+); Squamous Epithelial Cells - UA 0 SEEN /hpf (0-5); White Blood Cells 0 SEEN /hpf (0-5)
[2022-08-06 23:08] LABS: Color, Urine Yellow (Yellow); Glucose, Dipstick Normal (Normal); Ketone-Dipstick Negative (Negative); Leukocyte Esterase-Dipstick Negative /ul (Negative); Nitrite-Dipstick Negative (Negative); Occult Blood-Urine 25 /ul (Negative); Protein-Dipstick 15 mg/dl (Negative); Urine Bilirubin Dipstick Negative (Negative); Urine Clarity Clear (Clear); Urine Urobilinogen Normal (Normal)
--- NOTE | 2022-08-06 23:08 | NURSING ---
Pt straight cathed for urine sample as ordered. Pt tolerated well.
[2022-08-06 23:14] LABS: Red Blood Cells-Urine 0-5 SEEN /hpf (0-5)
[2022-08-07] VITALS (9 sets, daily range): BP systolic 119–146; BP diastolic 45–71; PULSE 66–73; RESP 18; TEMP 2.7–37.3; O2SAT 91–94
[2022-08-07] MEDS: LORazepam 1 MG Tablet PO ×3 (05:42→21:21)
[2022-08-07] MEDS: Menthol/Lanolin/Calamine/Znox 113 GM Tube 1 APPLIC TOPICAL ×3 (05:42→21:22)
--- NOTE | 2022-08-07 07:27 | PN.HOSP_ITS ---
Subjective Subjective Denies any complaint Objective Data Objective Data Vital Signs: Vital Signs Temp Pulse Resp BP Pulse Ox O2 Del Method O2 Flow Rate 36.8 C 66 18 123/54 H 91 Nasal Cannula 2 08/07/22 05:00 08/07/22 05:00 08/07/22 05:00 08/07/22 05:00 08/07/22 05:00 08/07/22 06:43 08/07/22 06:43 Oxygen Flow Rate (L/min) 2 Oxygen Delivery Method Nasal Cannula Weight: 70.3 kg Body Mass Index (BMI) 24.7 Intake & Output: Intake and Output for Last 24 Hours 08/05/22 08/06/22 08/07/22 23:59 23:59 23:59 Intake Total 526.67 / 626.67 130 / 130 Output Total 575 / 575 Balance 526.67 / 226.67 -445 / -445 Lab / Micro Data Result Diagrams: 08/06/22 12:23 08/07/22 05:10 Labs: Laboratory Results - last 24 hr 08/06/22 12:23: WBC 7.8, RBC 5.13, Hgb 14.6, Hct 42.8, MCV 83.4, MCH 28.5, MCHC 34.1, RDW Std Deviation 39.8, RDW Coeff of Phillip 13.2, Plt Count 203, MPV 10.1, Immature Gran % (Auto) 0.400, Neut % (Auto) 76.1 H, Lymph % (Auto) 16.3 L, [place] % (Auto) 7.1, Eos % (Auto) 0.0, Baso % (Auto) 0.1, Absolute Neuts (auto) 5.9, Absolute Lymphs (auto) 1.27, Nucleated RBC % 0 08/06/22 12:23: Sodium 129 L, Potassium 4.0, Chloride 96 L, Carbon Dioxide 24.0, Anion Gap 9, BUN 24 H, Creatinine 1.55 H, Estim Creat Clear Calc 28.11, Est GFR (MDRD) Af Amer 55 L, Est GFR (MDRD) Non-Af 45 L, BUN/Creatinine Ratio 15.5, Glucose 152 H, Calcium 8.5, Total Bilirubin 0.50, Direct Bilirubin 0.12, AST 59 H, ALT 30, Alkaline Phosphatase 59, Troponin I High Sens 34, Total Protein 7.2, Albumin 3.6, Globulin 3.6 08/06/22 12:23: TSH 0.48 08/06/22 23:00: Urine Color Yellow, Urine Clarity Clear, Urine pH 5.0, Ur Specific [place] 1.020, Urine Protein 15 H, Urine Glucose (UA) Normal, Urine Ketones Negative, Urine Occult Blood 25 H, Urine Nitrite Negative, Urine Bilirubin Negative, Urine Urobilinogen Normal, Ur Leukocyte Esterase Negative, Urine RBC 0-5 SEEN, Urine WBC 0 SEEN, Ur Squamous Epith Cells 0 SEEN, Urine Bacteria 0 SEEN, Urine Mucus 0 SEEN Radiography Diagnostic Testing: Radiology Impression Brain CT 08/06/22 12:14 IMPRESSION: No acute intracranial process. Electronically Signed: Lydia Diane MD at 13:07 EST , Chest X-Ray 08/06/22 12:14 IMPRESSION: No radiographic evidence of acute cardiopulmonary disease. Electronically Signed: Lydia Diane MD at 13:24 EST , Physical Exam Const Constitutional Narrative: Initially asleep in the chair but was able to wake up. No acute distress. Resp normal respiratory effort and no retractions Cardio regular rate, regular rhythm, S1 normal heart sound and S2 normal heart sound GI normal to inspection, nondistended, normoactive bowel sounds, soft to palpation, non-tender and non-distended Extremity normal to inspection Assessment & Plan Assessment/Plan (1) Adult failure to thrive: PLAN: Frequent Falls, Debility, FTT Adult: Patient has progressively been declining, has been living by himself and very reticent to any interventions or assistance but over the last 24 hours has fallen several times requiring even EMS evaluation, will admit to medical surgical floor, maintain on fall precautions, PT, OT, case management consultation for discharge planning as well as per discussion with patient and family request for hospice at facility evaluation potentially [facility]. PLAN: Plan Hyponatremia, suspected mild hypovolemia: Admission sodium 129, chloride 96, primarily in the past has been normal level, will very judiciously hydrate given underlying CHF previous history noted, repeat CMP in a.m and if appropriate level for him would defer further labs at that time given planned transition to hospice at facility. Hyperglycemia: Mild, glucose 152, given DNR-CC status and patient current preference to transition to Hospice, will defer further work-up. Chronic conditions: * CAD: 08/13/2015 [facility] cardiac catheterization following transfer at that time from [facility] with abnormal stress testing w/ severe 3-vessel disease was found w/ LAD 80% disease throughout 2/3 of the vessel and EF 25% w/ previous stress echo revealing an EF of 45%, plan at that time had been CABG vs. medical therapy; however, post-cath suffered acute CVA. Transitioned to DNR-CC status, currently plan to consult hospice for facility transition. Will continue asa, hypertension regimen, defer statin per patient preference. He has been taken off medications over the years per his preference. * History CVA: Unfortunately happened postcardiac catheterization with sudden onset right sided hemiparesis with tPA administration at that time and transition following to Coumadin therapy with complete resolution of his symptoms and transition to aspirin, Plavix, Coumadin, appropriate hypertensive regimen as well as statin therapy at that time, MRI at that time with scattered small foci representing embolic process, MRA with stenosis of basilar artery and areas of narrowing in the LVA and right ICA, MRI of the neck at that time with multiple areas of stenosis in the distal vertebral artery and basilar artery as well as atherosclerosis of the right carotid. Patient per records from [facility] had transiently required a mechanical soft diet with honey thickened liquids however he eventually progressed to regular diet without issues per report. * Hypertension, Uncontrolled: Currently will continue coreg, BP notably elevated, will add isosorbide only which he has been on in the past to achieve some modicum of control, but again, awaiting hospice at facility transition so beyond that patient preference may be to discontinue medications. PRN IV hydralazine. * Hyperlipidemia: Not on statin, previously had been, defer given planned hospice transition. * Chronic Kidney Disease Stage III, unclear subtype: Admission BUN/Cr 24/1.55, baseline renal function appears primarily 1.3-1.5, stay, repeat BMP in AM. * Carotid Disease: As noted under Hx CVA, will continue asa only, not on statin, HTN regimen as noted. * Chart reported Hx Hypothyroidism: Not on regimen, TSH will be added to labs, only because certainly if very abnormal, although not expected could be addressed and lead to improved comfort. * Anxiety and Depression: From discussion with family patient does become agita odnnie intermittently, we will continue patient on fluoxetine as well as Ativan regimen cautiously. * Dementia unclear type: From discussion with family and description likely does have some underlying behavioral disturbance history, complicates presentation, maintain on low-dose Ativan as noted as needed and if necessary may consider adding Seroquel if needed low-dose. * Former tobacco use w/ COPD: Not currently on any regimen, as needed albuterol if necessary. * Systolic CHF/Ischemic Cardiomyopathy: Patient previously EF 2014 45% ECHO- >2015 cardiac catheterization EF25%, was in 2015 upon his [facility] discharge on appropriate regimen however he is since de-escalated off therapy with transition to DNRCC status, judiciously hydrating given underlying history, continued on aspirin, Coreg, defer any other regimen addition given patient preference which was also discussed with family. * BPH: Continue patient home Flomax regimen. DVT prophylaxis: Will hold on additional SCDs or chemoprophylaxis given DNRCC status and planned facility hospice transition, also may upset patient per discussion with family. Patient also notes less intervention best. CODE status: Patient ZEYAD is his son and living will is currently in place. Previously his healthcare power of transactional attorney had been his however she is sometime ago. Discussed CODE status at length including difference between FULL code, DNR-CCA and DNR-CC status. Following discussions about the differences in these status, requested DNR-CC. The family and patient are interested in Hospice at Facility. Advanced Care Planning Charges/Coding Visit Charges OBSV E&M: 86925 Subsequent observation care L2
[2022-08-07 07:29] LABS: AST(SGOT) 49 U/L (15-37); Alanine Aminotransfer ALT/SGPT 24 U/L (16-61); Albumin, Serum 2.8 g/dL (3.2-5.0); Alkaline Phosphatase 48 U/L (45-117); Anion Gap 6 (5-15); BUN 26 mg/dL (7-18); BUN/Creat Ratio 20.5 RATIO (10-20); Calcium,Total 7.9 mg/dL (8.5-10.1); Chloride 99 mmol/L (98-107); Creatinine, Serum 1.27 mg/dL (0.70-1.30); EST Glomerular Filtration Rate 57 mL/min (>60); Est Glom Filt Rate - Afr Amer 69 mL/min (>60); Estimated Creatinine Clearance 36.98 ml/min; Globulin 2.8 g/dL (2.2-4.2); Glucose 95 mg/dL (74-106); Potassium 3.3 mmol/L (3.5-5.1); Protein, Total 5.6 g/dL (6.4-8.2); Sodium Level 131 mmol/L (136-145)
[2022-08-07] MEDS: Carvedilol 25 MG Tablet PO ×2 (10:06→21:22)
[2022-08-07] MEDS: Ensure Plus High Protein 120 ML LIQUID PO ×3 (10:06→17:13)
[2022-08-07] MEDS: Aspirin 81 MG TAB.CHEW PO (10:06)
[2022-08-07] MEDS: FLUoxetine 20 MG Capsule PO (10:07)
[2022-08-07] MEDS: Senna/Docusate Sodium 1 Tablet PO (10:07)
[2022-08-07] MEDS: Isosorbide Mononitrate 30 MG Tablet PO (10:07)
[2022-08-07] MEDS: Tamsulosin HCl 0.4 MG Capsule PO (17:13)
[2022-08-08] VITALS (8 sets, daily range): BP systolic 137–180; BP diastolic 60–74; PULSE 70–78; RESP 16–18; TEMP 36.7–37.2; O2SAT 93–96
[2022-08-08] MEDS: Menthol/Lanolin/Calamine/Znox 113 GM Tube 1 APPLIC TOPICAL ×3 (05:58→21:49)
[2022-08-08] MEDS: LORazepam 1 MG Tablet PO ×3 (05:58→21:49)
[2022-08-08] MEDS: Ensure Plus High Protein 120 ML LIQUID PO ×3 (08:17→17:36)
[2022-08-08] MEDS: Isosorbide Mononitrate 30 MG Tablet PO (08:18)
[2022-08-08] MEDS: Senna/Docusate Sodium 1 Tablet PO (08:18)
[2022-08-08] MEDS: Carvedilol 25 MG Tablet PO ×2 (08:18→21:49)
[2022-08-08] MEDS: FLUoxetine 20 MG Capsule PO (08:18)
[2022-08-08] MEDS: Aspirin 81 MG TAB.CHEW PO (08:18)
--- NOTE | 2022-08-08 12:56 | CASEMGMT ---
RN EDITA NOTE: Intro role of CM to step-son, Bennie/POA, and JAUREGUI form explained re: Observation status for treatment of falls and failure to thrive. Explained hospitalization will be paid per his insurance policy for Outpatient billing and condition will continue to be evaluated for Inpt necessity. Also let pt know that [facility] sends paper in the billing packet with their phone number if questions arise. Bennie verbalizes understanding and does not have further questions. Form signed, copy made and placed in chart, and original given to Bennie. Lul CERVANTESN RN CM
--- NOTE | 2022-08-08 13:25 | CASEMGMT ---
Social Work? Family requested meeting with ALMAZ. SW in to meet with family. During rounds discussed anticipating SNF. ALMAZ introduced self and role at the hospital. Pt's HCPOA, Bennie, wanted to discuss discharge planning. A list of SNF providers including quality and resource use data and consistent with the patient?s preferred geographic region, medical needs, and insurance network was offered from the [facility]. Bennie declined, stated due to own experience with SNFs Bennie has a good idea of what they are like and the family is requesting [facility]. Pt's daughter lives close. Second chose would be [place]. ALMAZ informed Rosa Velasquez, discharge family practice physician assistant. Referral to be sent. ? PLAN: [facility], pending acceptance and precert. ? JOSE J Lehman?
--- NOTE | 2022-08-08 13:31 | PCM.PN.HOSP ---
Subjective Subjective DW pt's dtr. 1 week ago pt able with a walker to go to physician appt. Objective Data Objective Data Vital Signs: Vital Signs Temp Pulse Resp BP Pulse Ox O2 Del Method O2 Flow Rate 36.8 C 73 18 180/70 H 94 Room Air 2 08/08/22 08:11 08/08/22 08:11 08/08/22 08:11 08/08/22 08:11 08/08/22 08:11 08/08/22 08:11 08/08/22 08:11 Oxygen Flow Rate (L/min) 2 Oxygen Delivery Method Room Air Weight: 70.3 kg Body Mass Index (BMI) 24.7 Intake & Output: Intake and Output for Last 24 Hours 08/06/22 08/07/22 08/08/22 23:59 23:59 23:59 Intake Total 526.67 / 626.67 530 / 650 620 / 620 Output Total 925 / 1225 650 / 650 Balance 526.67 / 226.67 -395 / -575 -30 / -30 Lab / Micro Data Result Diagrams: 08/06/22 12:23 08/07/22 05:10 Physical Exam Const Constitutional Narrative: witnessed sleep apnea. awakes and is listless but appropriate. Resp normal respiratory effort, no retractions and no use of accessory muscles Cardio regular rate, regular rhythm, S1 normal heart sound and S2 normal heart sound GI normal to inspection, nondistended, normoactive bowel sounds and soft to palpation Assessment & Plan Assessment/Plan (1) Adult failure to thrive: PLAN: Frequent Falls, Debility, FTT Adult: Patient has progressively been declining, has been living by himself and very reticent to any interventions or assistance but over the last 24 hours has fallen several times requiring even EMS evaluation, will admit to medical surgical floor, maintain on fall precautions, PT, OT, case management consultation for discharge planning as well as per discussion with patient and family request for hospice at facility evaluation potentially [facility]. PLAN: Plan Hyponatremia, suspected mild hypovolemia: Admission sodium 129, chloride 96, primarily in the past has been normal level, will very judiciously hydrate given underlying CHF previous history noted, repeat CMP in a.m and if appropriate level for him would defer further labs at that time given planned transition to hospice at facility. Hyperglycemia: Mild, glucose 152, given DNR-CC status and patient current preference to transition to Hospice, will defer further work-up. Chronic conditions: CAD: 08/13/2015 [facility] cardiac catheterization following transfer at that time from [facility] with abnormal stress testing w/ severe 3-vessel disease was found w/ LAD 80% disease throughout 2/3 of the vessel and EF 25% w/ previous stress echo revealing an EF of 45%, plan at that time had been CABG vs. medical therapy; however, post-cath suffered acute CVA. Transitioned to DNR-CC status, currently plan to consult hospice for facility transition. Will continue asa, hypertension regimen, defer statin per patient preference. He has been taken off medications over the years per his preference. History CVA: Unfortunately happened postcardiac catheterization with sudden onset right sided hemiparesis with tPA administration at that time and transition following to Coumadin therapy with complete resolution of his symptoms and transition to aspirin, Plavix, Coumadin, appropriate hypertensive regimen as well as statin therapy at that time, MRI at that time with scattered small foci representing embolic process, MRA with stenosis of basilar artery and areas of narrowing in the LVA and right ICA, MRI of the neck at that time with multiple areas of stenosis in the distal vertebral artery and basilar artery as well as atherosclerosis of the right carotid. [facility] required a mechanical soft diet with honey thickened liquids however he eventually progressed to regular diet without issues per report. Hypertension, Uncontrolled: Currently will continue coreg, BP notably elevated, will add isosorbide only which he has been on in the past to achieve some modicum of control, but again, awaiting hospice at facility transition so beyond that patient preference may be to discontinue medications. PRN IV hydralazine. Hyperlipidemia: Not on statin, previously had been, defer given planned hospice transition. Chronic Kidney Disease Stage III, unclear subtype: Admission BUN/Cr 24/1.55, baseline renal function appears primarily 1.3-1.5, stay, repeat BMP in AM. Carotid Disease: As noted under Hx CVA, will continue asa only, not on statin, HTN regimen as noted. Chart reported Hx Hypothyroidism: Not on regimen, TSH will be added to labs, only because certainly if very abnormal, although not expected could be addressed and lead to improved comfort. Anxiety and Depression: From discussion with family patient does become agitated intermittently, we will continue patient on fluoxetine as well as Ativan regimen cautiously. Dementia unclear type: From discussion with family and description likely does have some underlying behavioral disturbance history, complicates presentation, maintain on low-dose Ativan as noted as needed and if necessary may consider adding Seroquel if needed low-dose. Former tobacco use w/ COPD: Not currently on any regimen, as needed albuterol if necessary. Systolic CHF/Ischemic Cardiomyopathy: Patient previously EF 2014 45% ECHO->2014 cardiac catheterization EF25%, was in 2015 upon his summa discharge on appropriate regimen however he is since de-escalated off therapy with transition to DNRCC status, judiciously hydrating given underlying history, continued on aspirin, Coreg, defer any other regimen addition given patient preference which was also discussed with family. BPH: Continue patient home Flomax regimen. DVT prophylaxis: Will hold on additional SCDs or chemoprophylaxis given DNRCC status and planned facility hospice transition, also may upset patient per discussion with family. Patient also notes less intervention best. CODE status: Patient ZEYAD is his son and living will is currently in place. Previously his healthcare power of attorney at law had been his however she is sometime ago. Discussed CODE status at length including difference between FULL code, DNR-CCA and DNR-CC status. Following discussions about the differences in these status, requested DNR-CC. The family and patient are interested in Hospice at Facility. Advanced Care Planning 08/08: Greater than 40 minutes of which greater than for percent of time was discussing with the patient's daughter at bedside about his condition. She states that he has changed from a week ago, however, he has had a long history of refusing work with therapy and would not have the drive to continue to do therapy to eventually get back home. She notes that she is not the power of attorney at law and that is her brother and this is been expressed to the patient's brother that he would want to proceed with hospice measures in light of these current situations. Charges/Coding Visit Charges OBSV E&M: 65742 Subsequent observation care L3
--- NOTE | 2022-08-08 13:43 | CASEMGMT ---
Discharge Rocket Test Fire Worker This grant writer sent referral to [facility] via [facility]. Justa CABALLERO Block Captain
--- NOTE | 2022-08-08 14:19 | CASEMGMT ---
KAY KOHLER NOTE: Per SW, she spoke w/step-son, Bennie, and referral to be sent to [facility]. Noted nursing handoff states Hospice met w/step-son, Bennie, yesterday and plan is for pt to go to nursing facility on Hospice. RN EDITA placed call to [facility] and they state Bennie did sign pt on for Hospice yesterday when they met w/him. KAY KOHLER placed call to Joselyn , and she was notified. She states she will reach out to Bennie to get clarification on discharge plan. Plan: TBD. SNF vs nursing facility on Hospice. Lul VALENTINE RN, CM
--- NOTE | 2022-08-08 14:54 | CM.ED ---
ALMAZ called ZEYAD Mcbride. He said that patient has done better and improved quite a bit this morning so he feels that patient does not need hospice yet. Bennie said that patient has palliative care. Bennie said that patient is not able to go home by himself safety and they do not have anyone that could be with him 27/03 so he needs to go to SNF. Bennie is requesting [facility]. ALMAZ explained that patient can't have hospice and rehab or SNF benefits in use at the same time and Bennie verbalized understanding. Bennie again voiced that he did not feel that patient ready for hospice yet and he wanted patient to go to a SNF. Bennie said that he signed the paperwork for hospice yesterday. ALMAZ explained that if Bennie signed paperwork for hospice yesterday he needs to call hospice and discharge hospice today if he wants patient to go to SNF. Bennie verbalized understanding and agreed to call hospice. Bennie said that he does not feel that patient is at the end of life and he wants patient to go to rehab. Bennie will call hospice and provide update. ALMAZ called Rosa Public Service Officer, and advised her of plan for patient to go to [facility]. Rosa has already made the referral. ALMAZ called Jyoti VILLANUEVA and advised her of plan for patient to go to [facility] at discharge. ALMAZ called Emily at [facility] hospice and advised her that Bennie is planning to call in and discharge hospice for patient. Emily said that Bennie had called and requested that hospice be put on hold as they have financial concerns regarding patient going to SNF with hospice benefits. Plan: [facility] on SNF benefits. Joselyn MACHADO
--- NOTE | 2022-08-08 15:07 | CHAPLAIN ---
Type of Pastoral Visit _x__ Initial Visit ___ Follow-up Visit ___ On-call Visit ___ General Patient Visit ___ Spiritual Assessment ___ Family Conference ___ Bereavement ___ Rapid Response ___ Code Blue ___ Other (describe below) Pastoral Care Referral From _x__ Patient ___ Family ___ Nurse ___ Physician ___ Software Engineer Kernel ___ Mat Inspector ___ Other (describe below) Sacrament/Intervention _x__ Active listening ___ Anointing ___ Mosque ___ Bereavement ___ Communion ___ Josie exploration ___ ___ Life review _x__ Prayer ___ Reconciliation ___ Sacrament of Sick ___ Supportive presence ___ Wedding ___ Other (describe below) Pastoral Comments patient is resting but easily is awakened by call of his name; pt states that he is fine; pt answers questions but does not engage in a conversation; pt welcomes a prayer
[2022-08-08] MEDS: Acetaminophen 325 MG Tablet 650 MG PO (16:31)
[2022-08-08] MEDS: Tamsulosin HCl 0.4 MG Capsule PO (18:10)
[2022-08-09 04:06] VITALS: BP 155/61; PULSE 65; RESP 16; TEMP 36.7; O2SAT 95
[2022-08-09 04:09] VITALS: BP 155/61; PULSE 65; RESP 16; TEMP 36.7; O2SAT 95
[2022-08-09] MEDS: LORazepam 1 MG Tablet PO (05:16)
[2022-08-09] MEDS: Menthol/Lanolin/Calamine/Znox 113 GM Tube 1 APPLIC TOPICAL ×3 (05:16→21:45)
--- NOTE | 2022-08-09 07:35 | PN.HOSP_ITS ---
Subjective Subjective Family discharged to hospice as there apparently was financial concerns about patient going to a [facility]ci facility with hospice benefits. Feels ok. Objective Data Objective Data Vital Signs: Vital Signs Temp Pulse Resp BP Pulse Ox O2 Del Method O2 Flow Rate 36.7 C 65 16 155/61 H 95 Room Air 2 08/09/22 04:09 08/09/22 04:09 08/09/22 04:09 08/09/22 04:09 08/09/22 04:09 08/09/22 04:09 08/08/22 16:19 Oxygen Flow Rate (L/min) 2 Oxygen Delivery Method Room Air Weight: 70.3 kg Body Mass Index (BMI) 24.7 Intake & Output: Intake and Output for Last 24 Hours 08/07/22 08/08/22 08/09/22 23:59 23:59 23:59 Intake Total 530 / 650 620 / 620 200 / 200 Output Total 925 / 1225 1150 / 1150 725 / 725 Balance -395 / -575 -530 / -530 -525 / -525 Lab / Micro Data Result Diagrams: 08/09/22 07:58 08/09/22 07:58 Physical Exam Const alert and no apparent distress HEENT head/scalp atraumatic Resp normal respiratory effort, no retractions, no use of accessory muscles and clear to auscultation bilaterally Cardio regular rate, regular rhythm, S1 normal heart sound and S2 normal heart sound GI normal to inspection, nondistended, normoactive bowel sounds and soft to palpation Assessment & Plan Assessment/Plan (1) Adult failure to thrive: PLAN: Frequent Falls, Debility, FTT Adult: Patient has progressively been declining, has been living by himself and very reticent to any interventions or assistance but over the last 24 hours has fallen several times requiring even EMS evaluation, will admit to medical surgical floor, maintain on fall precautions, PT, OT, case management consultation for discharge planning as well as per discussion with patient and family request for [facility]. PLAN: Plan Hyponatremia, suspected mild hypovolemia: Admission sodium 129, chloride 96, pr imarily in the past has been normal level, will very judiciously hydrate given underlying CHF previous history noted, repeat CMP in a.m and if appropriate level for him would defer further labs at that time given planned transition to hospice at facility. Hyperglycemia: Mild, glucose 152, given DNR-CC status and patient current preference to transition to Hospice, will defer further work-up. Chronic conditions: * CAD: 08/13/2015 [facility] cardiac catheterization following transfer at that time from [facility] with abnormal stress testing w/ severe 3-vessel disease was found w/ LAD 80% disease throughout 2/3 of the vessel and EF 25% w/ previous stress echo revealing an EF of 45%, plan at that time had been CABG vs. medical therapy; however, post-cath suffered acute CVA. Transitioned to DNR-CC status, currently plan to consult hospice for facility transition. Will continue asa, hypertension regimen, defer statin per patient preference. He has been taken off medications over the years per his preference. * History CVA: Unfortunately happened postcardiac catheterization with sudden onset right sided hemiparesis with tPA administration at that time and transition following to Coumadin therapy with complete resolution of his symptoms and transition to aspirin, Plavix, Coumadin, appropriate hypertensive regimen as well as statin therapy at that time, MRI at that time with scattered small foci representing embolic process, MRA with stenosis of basilar artery and areas of narrowing in the LVA and right ICA, MRI of the neck at that time with multiple areas of stenosis in the distal vertebral artery and basilar artery as well as atherosclerosis of the right carotid. Patient per records from [facility] had transiently required a mechanical soft diet with honey thickened liquids however he eventually progressed to regular diet without issues per report. * Hypertension, Uncontrolled: Currently will continue coreg, BP notably elevated, will add isosorbide only which he has been on in the past to achieve some modicum of control, but again, awaiting hospice at facility transition so beyond that patient preference may be to discontinue medications. PRN IV hydralazine. * Hyperlipidemia: Not on statin, previously had been, defer given planned hospice transition. * Chronic Kidney Disease Stage III, unclear subtype: Admission BUN/Cr 24/1.55, baseline renal function appears primarily 1.3-1.5, stay, repeat BMP in AM. * Carotid Disease: As noted under Hx CVA, will continue asa only, not on statin, HTN regimen as noted. * Chart reported Hx Hypothyroidism: Not on regimen, TSH will be added to labs, only because certainly if very abnormal, although not expected could be addressed and lead to improved comfort. * Anxiety and Depression: From discussion with family patient does become agitated intermittently, we will continue patient on fluoxetine as well as Ativan regimen cautiously. * Dementia unclear type: From discussion with family and description likely does have some underlying behavioral disturbance history, complicates presentation, maintain on low-dose Ativan as noted as needed and if necessary may consider adding Seroquel if needed low-dose. * Former tobacco use w/ COPD: Not currently on any regimen, as needed albuterol if necessary. * Systolic CHF/Ischemic Cardiomyopathy: Patient previously EF 2014 45% ECHO- >2014 cardiac catheterization EF25%, was in 2015 upon his summa discharge on appropriate regimen however he is since de-escalated off therapy with transition to DNRCC status, judiciously hydrating given underlying history, continued on aspirin, Coreg, defer any other regimen addition given patient preference which was also discussed with family. * BPH: Continue patient home Flomax regimen. DVT prophylaxis: Will hold on additional SCDs or chemoprophylaxis given DNRCC s tatus and planned facility hospice transition, also may upset patient per discussion with family. Patient also notes less intervention best. CODE status: Patient ZEYAD is his son and living will is currently in place. Previously his healthcare power of contract implementation analyst had been his however she is pas sed away sometime ago. Discussed CODE status at length including difference between FULL code, DNR-CCA and DNR-CC status. Following discussions about the differences in these status, requested DNR-CC. The family and patient are interested in Hospice at Facility. Advanced Care Planning 08/08: Greater than 40 minutes of which greater than for percent of time was discussing with the patient's daughter at bedside about his condition. She states that he has changed from a week ago, however, he has had a long history of refusing work with therapy and would not have the drive to continue to do therapy to eventually get back home. She notes that she is not the power of contract implementation analyst and that is her brother and this is been expressed to the patient's brother that he would want to proceed with hospice measures in light of these current situations. 08/09: Hospice discharge but sounds more likely due to financial concerns. We will check some basic labs. Continue with therapy evaluation Charges/Coding Visit Charges OBSV E&M: 30968 Subsequent observation care L2
--- NOTE | 2022-08-09 08:00 | CASEMGMT ---
Social Work SW met with pt Bennie WAGGONER. Bennie stated pt has HCPOA, which is on file with [facility]. Bennie stated no LW. PT does have DNRCC form that was signed recently and placed on pt chart. Bennie declined information on LW at this time. JOSE J Lehman
[2022-08-09 08:07] LABS: Absolute Neutrophil Count 2.5 X10^3/uL (2.0-7.7); Basophil# 0.01 X10^3/uL; Basophil% 0.2 % (0-1); Eosinophil# 0.25 X10^3/uL; Eosinophils% 5.8 % (0-5); Hematocrit 38.7 % (40-54); Hemoglobin 13.1 g/dL (13.0-16.5); Mean Corp Hgb Conc 33.9 g/dL (32-36); Mean Corpuscular Hgb 28.4 pg (27.0-32.0); Mean Corpuscular Volume 83.8 fL (80-94); Monocyte# 0.36 X10^3/uL; Monocyte% 8.4 % (0-10); NRBC Flagged by Analyzer 0 % (0-5); Neutrophil # 2.45 X10^3/uL (2.7-7.7); Neutrophil % 57.4 % (47-70); Platelet Count 170 K/mm3 (150-450); RBC Distribution Width CV 13.1 % (11.6-14.6); RBC Distribution Width SD 39.9 fl (35.1-43.9); Red Blood Count 4.62 M/mm3 (4.6-6.2); White Blood Count 4.3 K/mm3 (4.4-11.0)
[2022-08-09] MEDS: Ensure Plus High Protein 120 ML LIQUID PO ×3 (08:29→17:24)
[2022-08-09] MEDS: Carvedilol 25 MG Tablet PO ×2 (08:30→21:45)
[2022-08-09] MEDS: FLUoxetine 20 MG Capsule PO (08:30)
[2022-08-09] MEDS: Senna/Docusate Sodium 1 Tablet PO (08:30)
[2022-08-09] MEDS: Aspirin 81 MG TAB.CHEW PO (08:30)
[2022-08-09] MEDS: Isosorbide Mononitrate 30 MG Tablet PO (08:30)
[2022-08-09 08:39] LABS: Vitamin B12 542 pg/mL (211-911)
[2022-08-09 08:48] LABS: Anion Gap 5 (5-15); BUN 16 mg/dL (7-18); BUN/Creat Ratio 15.4 RATIO (10-20); Calcium,Total 8.5 mg/dL (8.5-10.1); Chloride 100 mmol/L (98-107); Creatinine, Serum 1.04 mg/dL (0.70-1.30); EST Glomerular Filtration Rate 72 mL/min (>60); Est Glom Filt Rate - Afr Amer 87 mL/min (>60); Estimated Creatinine Clearance 45.16 ml/min; Glucose 113 mg/dL (74-106); Sodium Level 131 mmol/L (136-145)
--- NOTE | 2022-08-09 10:06 | CASEMGMT ---
Discharge Herb Counselor This advertising copy writer called [facility]. Kath is out of town. This advertising copy writer asked if anyone was covering admissions and they were unaware of this referral and was going to try to call Kath but not sure if they would get a response. This advertising copy writer sent referral to Pat at [facility] via [facility]. Justa CABALLERO Eligibility Clerk
[2022-08-09 10:15] VITALS: BP 149/75; PULSE 74; RESP 18; TEMP 36.6; O2SAT 95
--- NOTE | 2022-08-09 10:20 | CASEMGMT ---
Social Work SW called pt Bennie WAGGONER, to inform of no training and development director at [facility] this day and concern that the DOA being on vacation for several days possibly delaying pt's placement. Bennie confirmed second choice of SNF being [facility] during this pc and agreeable to a referral being sent there as a back up plan. Bennie discussed intent to come to [facility] to visit pt later this day and stated would be available to discuss further if needed. PLAN: Send second referral to [facility]. JOSE J Lehman
--- NOTE | 2022-08-09 13:00 | CASEMGMT ---
Discharge Clinical Systems Analyst Pat from [facility] reached out. Patient has been declined. ALMAZ Mendes notified. Justa CABALLERO Center Hole Reamer
[2022-08-09 14:25] VITALS: BP 132/68; PULSE 72; RESP 18; TEMP 36.4; O2SAT 96
--- NOTE | 2022-08-09 15:05 | CASEMGMT ---
Social Work SW called [facility] to inquire about referral. SW notified Kath GARZA, was out today and would be back tomorrow to review pt case further. PLAN: [facility], pending acceptance and precert JOSE J Lehman
[2022-08-09] MEDS: Tamsulosin HCl 0.4 MG Capsule PO (17:24)
[2022-08-09 20:30] VITALS: BP 169/71; PULSE 74; RESP 16; TEMP 36.3; O2SAT 94
[2022-08-09 22:00] VITALS: BP 169/71; PULSE 74; RESP 16; TEMP 36.3; O2SAT 94
[2022-08-10] VITALS (10 sets, daily range): BP systolic 106–183; BP diastolic 46–78; PULSE 63–75; RESP 16–18; TEMP 36.6–36.9; O2SAT 95–98
[2022-08-10] MEDS: 0.9% Saline Lock 10 ML Syringe IV ×2 (02:59→13:08)
[2022-08-10] MEDS: hydrALAZINE 20 MG/ML Vial 10 MG IV ×2 (02:59→21:59)
[2022-08-10] MEDS: Menthol/Lanolin/Calamine/Znox 113 GM Tube 1 APPLIC TOPICAL ×3 (06:44→21:59)
--- NOTE | 2022-08-10 07:14 | PN.HOSP_ITS ---
Subjective Subjective Feels well. No complaints. Objective Data Objective Data Vital Signs: Vital Signs Temp Pulse Resp BP Pulse Ox O2 Del Method O2 Flow Rate 36.9 C 75 16 148/64 H 95 Room Air 2 08/10/22 04:00 08/10/22 04:00 08/10/22 04:00 08/10/22 04:02 08/10/22 04:00 08/10/22 04:00 08/10/22 04:00 Oxygen Flow Rate (L/min) 2 Oxygen Delivery Method Room Air Weight: 70.3 kg Body Mass Index (BMI) 24.7 Intake & Output: Intake and Output for Last 24 Hours 08/08/22 08/09/22 08/10/22 23:59 23:59 23:59 Intake Total 620 / 620 300 / 300 Output Total 1150 / 1150 1325 / 1575 650 / 650 Balance -530 / -530 -1025 / -1275 -650 / -650 Lab / Micro Data Result Diagrams: 08/09/22 07:58 08/09/22 07:58 Labs: Laboratory Results - last 24 hr 08/09/22 07:58: WBC 4.3 L, RBC 4.62, Hgb 13.1, Hct 38.7 L, MCV 83.8, MCH 28.4, MCHC 33.9, RDW Std Deviation 39.9, RDW Coeff of Phillip 13.1, Plt Count 170, MPV 10.0, Immature Gran % (Auto) 0.200, Neut % (Auto) 57.4, Lymph % (Auto) 28.0, Isabella % (Auto) 8.4, Eos % (Auto) 5.8 H, Baso % (Auto) 0.2, Absolute Neuts (auto) 2.5, Absolute Lymphs (auto) 1.20, Nucleated RBC % 0 08/09/22 07:58: Sodium 131 L, Potassium 4.0, Chloride 100, Carbon Dioxide 26.0, Anion Gap 5, BUN 16, Creatinine 1.04, Estim Creat Clear Calc 45.16, Est GFR (MDRD) Af Amer 87, Est GFR (MDRD) Non-Af 72, BUN/Creatinine Ratio 15.4, Glucose 113 H, Calcium 8.5, Folate 5.00 08/09/22 07:58: Vitamin B12 542 Physical Exam Const Constitutional Narrative: Awake. Pleasant. Interactive Resp normal respiratory effort, no retractions, no use of accessory muscles and clear to auscultation bilaterally Cardio regular rate, regular rhythm, S1 normal heart sound and S2 normal heart sound GI normal to inspection, nondistended, normoactive bowel sounds, soft to palpation, non-tender and non-distended Assessment & Plan Assessment/Plan (1) Adult failure to thrive: PLAN: Frequent Falls, Debility, FTT Adult: Patient has progressively been declining, has been living by himself and very reticent to any interventions or assistance but over the last 24 hours has fallen several times requiring even EMS evaluation, will admit to medical surgical floor, maintain on fall precautions, PT, OT, case management consultation for discharge planning as well as per discussion with patient and family request for oJhnnie Cindy. DC'd lorazepam B12, folate and TSH were unremarkable Possibly may be related with lorazepam which has been held. Continue to hold lorazepam but monitor for evidence of withdrawal symptoms. PLAN: Plan Hyponatremia, suspected mild hypovolemia: Admission sodium 129, chloride 96, primarily in the past has been normal level, will very judiciously hydrate given underlying CHF previous history noted, repeat CMP in a.m and if appropriate level for him would defer further labs at that time given planned transition to hospice at facility. Hyperglycemia: Mild, glucose 152, given DNR-CC status and patient current preference to transition to Hospice, will defer further work-up. Chronic conditions: * CAD: 08/13/2015 [facility] cardiac catheterization following transfer at that time from [facility] with abnormal stress testing w/ severe 3-vessel disease was found w/ LAD 80% disease throughout 2/3 of the vessel and EF 25% w/ previous stress ech o revealing an EF of 45%, plan at that time had been CABG vs. medical therapy; however, post-cath suffered acute CVA. Transitioned to DNR-CC status, currently plan to consult hospice for facility transition. Will continue asa, hypertension regimen, defer statin per patient preference. He has been taken off medications over the years per his preference. * History CVA: Unfortunately happened postcardiac catheterization with sudden onset right sided hemiparesis with tPA administration at that time and transition following to Coumadin therapy with complete resolution of his symptoms and transition to aspirin, Plavix, Coumadin, appropriate hypertensive regimen as well as statin therapy at that time, MRI at that time with scattered small foci representing embolic process, MRA with stenosis of ba silar artery and areas of narrowing in the LVA and right ICA, MRI of the neck at that time with multiple areas of stenosis in the distal vertebral artery and basilar artery as well as atherosclerosis of the right carotid. Patient per records from [facility] had transiently required a mechanical soft diet with honey thickened liquids however he eventually progressed to regular diet without issues per report. * Hypertension, Uncontrolled: Currently will continue coreg, BP notably elevated, will add isosorbide only which he has been on in the past to achieve some modicum of control, but again, awaiting hospice at facility transition so beyond that patient preference may be to discontinue medications. PRN IV hydralazine. * Hyperlipidemia: Not on statin, previously had been, defer given planned hospi ce transition. * Chronic Kidney Disease Stage III, unclear subtype: Admission BUN/Cr 24/1.55, baseline renal function appears primarily 1.3-1.5, stay, repeat BMP in AM. * Carotid Disease: As noted under Hx CVA, will continue asa only, not on statin, HTN regimen as noted. * Chart reported Hx Hypothyroidism: Not on regimen, TSH will be added to labs, only because certainly if very abnormal, although not expected could be addressed and lead to improved comfort. * Anxiety and Depression: From discussion with family patient does become agitated intermittently, we will continue patient on fluoxetine as well as Ativan regimen cautiously. * Dementia unclear type: From discussion with family and description likely does have some underlying behavioral disturbance history, complicates presentation, maintain on low-dose Ativan as noted as needed and if necessary may consider adding Seroquel if needed low-dose. * Former tobacco use w/ COPD: Not currently on any regimen, as needed albuterol if necessary. * Systolic CHF/Ischemic Cardiomyopathy: Patient previously EF 2014 45% ECHO- >2015 cardiac catheterization EF25%, was in 2015 upon his [facility] discharge on appropriate regimen however he is since de-escalated off therapy with transition to DNRCC status, judiciously hydrating given underlying history, co ntinued on aspirin, Coreg, defer any other regimen addition given patient preference which was also discussed with family. * BPH: Continue patient home Flomax regimen. DVT prophylaxis: Will hold on additional SCDs or chemoprophylaxis given DNRCC status and planned facility hospice transition, also may upset patient per discussion with family. Patient also notes less intervention best. CODE status: Patient ZEYAD is his son and living will is currently in place. Previously his healthcare power of patent prosecution attorney had been his however she is sometime ago. Discussed CODE status at length including difference between FULL code, DNR-CCA and DNR-CC status. Following discussions about the differences in these status, requested DNR-CC. The family and patient are interested in Hospice at Facility. Advanced Care Planning 08/08: Greater than 40 minutes of which greater than for percent of time was discussing with the patient's daughter at bedside about his condition. She states that he has changed from a week ago, however, he has had a long history of refusing work with therapy and would not have the drive to continue to do therapy to eventually get back home. She notes that she is not the power of patent prosecution attorney and that is her brother and this is been expressed to the patient's bro ther that he would want to proceed with hospice measures in light of these current situations. 08/09: Hospice discharge but sounds more likely due to financial concerns. We will check some basic labs. Continue with therapy evaluation Charges/Coding Visit Charges Inpatient E&M: 63337 Subs Hosp L2
[2022-08-10] MEDS: Ensure Plus High Protein 120 ML LIQUID PO ×3 (07:51→16:29)
[2022-08-10] MEDS: Aspirin 81 MG TAB.CHEW PO (07:51)
[2022-08-10] MEDS: Carvedilol 25 MG Tablet PO ×2 (10:25→21:59)
[2022-08-10] MEDS: Isosorbide Mononitrate 30 MG Tablet PO (10:25)
[2022-08-10] MEDS: FLUoxetine 20 MG Capsule PO (10:25)
[2022-08-10] MEDS: Senna/Docusate Sodium 1 Tablet PO (10:25)
--- NOTE | 2022-08-10 10:29 | CASEMGMT ---
Social Work SW reached out to pt's POA, Bennie Rosa, to discuss discharge plan. SW asked Bennie to provide third choice as [facility] has declined and [facility] is not responding. Bennie stated would talk to step sister regarding alternative choice. Bennie also stated had juedi spoke to Kath at [facility] and that Kath would be responding to SW soon. SW checked [employer] and message from Kath was requesting Tap Out Operator Record and questions regarding pt's behaviors. ALMAZ inquired with pt nurse, Lucía, who stated pt has not been agitated and has seemed pleasant for all days of [facility] stay. SW communicated this information to Kath via [employer] and sent Med record. PLAN: Await decision from [facility] vs. Send referral to new choice. JOSE J Lehman
--- NOTE | 2022-08-10 10:50 | CASEMGMT ---
Addendum entered by Cinthya Bolton 08/10/22 13:16: ALMAZ called pt's HCPOA, Bennie, and informed of acceptance at [facility]. Bennie expressed relief. Bennie is aware insurance auth will be started today and may take a day or two to come back. PLAN: [facility], pending precert JOSE J Lehman Addendum entered by Cinthya Bolton 08/10/22 13:12: ALMAZ received message in [facility] from Kath at [facility]. Kaht willing to accept pt. ALMAZ requested precert be started today. JOSE J Lehman Original Note: Social work SW called Kath at [facility]. Kath in meeting. ALMAZ left message to inform Kath that the MAR list had been sent and to request Akth review and call back as soon as possible, otherwise alternative placement options will need to be explored. Designated Broker discussed intent to give message to Kath when meeting ends. ALMAZ left contact info. JOSE J Lehman
[2022-08-10] MEDS: Acetaminophen 325 MG Tablet 650 MG PO (16:28)
[2022-08-10] MEDS: Tamsulosin HCl 0.4 MG Capsule PO (16:29)
[2022-08-11] MEDS: Menthol/Lanolin/Calamine/Znox 113 GM Tube 1 APPLIC TOPICAL ×2 (06:21→20:15)
[2022-08-11 06:31] VITALS: BP 155/65; PULSE 63; RESP 16; TEMP 37.2; O2SAT 97
[2022-08-11 06:35] VITALS: BP 155/65; PULSE 63; RESP 16; TEMP 37.2; O2SAT 97
--- NOTE | 2022-08-11 07:15 | PCM.PN.HOSP ---
Subjective Subjective Feels well. Objective Data Objective Data Vital Signs: Vital Signs Temp Pulse Resp BP Pulse Ox O2 Del Method O2 Flow Rate 37.2 C 63 16 155/65 H 97 Room Air 2 08/11/22 06:35 08/11/22 06:35 08/11/22 06:35 08/11/22 06:35 08/11/22 06:35 08/11/22 06:35 08/11/22 06:35 Oxygen Flow Rate (L/min) 2 Oxygen Delivery Method Room Air Weight: 69.8 kg Body Mass Index (BMI) 24.7 Intake & Output: Intake and Output for Last 24 Hours 08/09/22 08/10/22 08/11/22 23:59 23:59 23:59 Intake Total 300 / 300 100 / 100 400 / 400 Output Total 1325 / 1575 650 / 650 Balance -1025 / -1275 -550 / -550 400 / 400 Lab / Micro Data Result Diagrams: 08/09/22 07:58 08/09/22 07:58 Physical Exam Const alert and no apparent distress Constitutional Narrative: Required 2 person assistance to get up from his bed into a chair. Resp normal respiratory effort, no retractions, no use of accessory muscles and clear to auscultation bilaterally Cardio regular rate, regular rhythm, S1 normal heart sound and S2 normal heart sound GI normal to inspection, nondistended, normoactive bowel sounds, soft to palpation and non-tender Assessment & Plan Assessment/Plan (1) Adult failure to thrive: PLAN: Frequent Falls, Debility, FTT Adult: Patient has progressively been declining, has been living by himself and very reticent to any interventions or assistance but over the last 24 hours has fallen several times requiring even EMS evaluation, will admit to medical surgical floor, maintain on fall precautions, PT, OT, case management consultation for discharge planning as well as per discussion with patient and family request for Johnnie White. DC'd lorazepam B12, folate and TSH were unremarkable Possibly may be related with lorazepam which has been held. Continue to hold lorazepam but monitor for evidence of withdrawal symptoms. PLAN: Plan Hyponatremia, suspected mild hypovolemia: Admission sodium 129, chloride 96, primarily in the past has been normal level, will very judiciously hydrate given underlying CHF previous history noted, repeat CMP in a.m and if appropriate level for him would defer further labs at that time given planned transition to hospice at facility. Hyperglycemia: Mild, glucose 152, given DNR-CC status and patient current preference to transition to Hospice, will defer further work-up. Chronic conditions: CAD: 08/13/2015 [facility] cardiac catheterization following transfer at that time from [facility] with abnormal stress testing w/ severe 3-vessel disease was found w/ LAD 80% disease throughout 2/3 of the vessel and EF 25% w/ previous stress echo revealing an EF of 45%, plan at that time had been CABG vs. medical therapy; however, post-cath suffered acute CVA. Transitioned to DNR-CC status, currently plan to consult hospice for facility transition. Will continue asa, hypertension regimen, defer statin per patient preference. He has been taken off medications over the years per his preference. History CVA: Unfortunately happened postcardiac catheterization with sudden onset right sided hemiparesis with tPA administration at that time and transition following to Coumadin therapy with complete resolution of his symptoms and transition to aspirin, Plavix, Coumadin, appropriate hypertensive regimen as well as statin therapy at that time, MRI at that time with scattered small foci representing embolic process, MRA with stenosis of basilar artery and areas of narrowing in the LVA and right ICA, MRI of the neck at that time with multiple areas of stenosis in the distal vertebral artery and basilar artery as well as atherosclerosis of the right carotid. Patient per records from [facility] had transiently required a mechanical soft diet with honey thickened liquids however he eventually progressed to regular diet without issues per report. Hypertension, Uncontrolled: Currently will continue coreg, BP notably elevated, will add isosorbide only which he has been on in the past to achieve some modicum of control, but again, awaiting hospice at facility transition so beyond that patient preference may be to discontinue medications. PRN IV hydralazine. Hyperlipidemia: Not on statin, previously had been, defer given planned hospice transition. Chronic Kidney Disease Stage III, unclear subtype: Admission BUN/Cr 24/1.55, baseline renal function appears primarily 1.3-1.5, stay, repeat BMP in AM. Carotid Disease: As noted under Hx CVA, will continue asa only, not on statin, HTN regimen as noted. Chart reported Hx Hypothyroidism: Not on regimen, TSH will be added to labs, only because certainly if very abnormal, although not expected could be addressed and lead to improved comfort. Anxiety and Depression: From discussion with family patient does become agitated intermittently, we will continue patient on fluoxetine as well as Ativan regimen cautiously. Dementia unclear type: From discussion with family and description likely does have some underlying behavioral disturbance history, complicates presentation, maintain on low-dose Ativan as noted as needed and if necessary may consider adding Seroquel if needed low-dose. Former tobacco use w/ COPD: Not currently on any regimen, as needed albuterol if necessary. Systolic CHF/Ischemic Cardiomyopathy: Patient previously EF 2014 45% ECHO->2014 cardiac catheterization EF25%, was in 2015 upon his [facility] discharge on appropriate regimen however he is since de-escalated off therapy with transition to DNRCC status, judiciously hydrating given underlying history, continued on aspirin, Coreg, defer any other regimen addition given patient preference which was also discussed with family. BPH: Continue patient home Flomax regimen. DVT prophylaxis: Will hold on additional SCDs or chemoprophylaxis given DNRCC status and planned facility hospice transition, also may upset patient per discussion with family. Patient also notes less intervention best. CODE status: Patient ZEYAD is his son and living will is currently in place. Previously his healthcare power of collections attorney had been his however she is sometime ago. Discussed CODE status at length including difference between FULL code, DNR-CCA and DNR-CC status. Following discussions about the differences in these status, requested DNR-CC. The family and patient are interested in Hospice at Facility. Advanced Care Planning 08/08: Greater than 40 minutes of which greater than for percent of time was discussing with the patient's daughter at bedside about his condition. She states that he has changed from a week ago, however, he has had a long history of refusing work with therapy and would not have the drive to continue to do therapy to eventually get back home. She notes that she is not the power of collections attorney and that is her brother and this is been expressed to the patient's brother that he would want to proceed with hospice measures in light of these current situations. 08/09: Hospice discharge but sounds more likely due to financial concerns. We will check some basic labs. Continue with therapy evaluation Charges/Coding Visit Charges OBSV E&M: 91017 Subsequent observation care L2
--- NOTE | 2022-08-11 09:23 | TREXTCAR_ITS ---
Diet Diet Order/Speech Therapy: 08/06/22 16:22 Diet: Regular - General Dietary Modifications:: No Added Salt Type of Dietary Supplement:: Isac BID w/lunch and din Diet Comments: Sup/Assistance as needed, Upright 90 degrees during&30min after food/drink Wound(s) rt elbow: Wound Type: Skin Tear bea buttocks: Wound Type: Pressure Injury rt anderson: Wound Type: Abrasion Therapies Physical Therapy: Eval and Treat Occupational Therapy: Eval and Treat Problem/Diagnosis (1) Adult failure to thrive: Status: Acute Code(s): R62.7 - Adult failure to thrive Plan: Frequent Falls, Debility, FTT Adult: Patient has progressively been declining, has been living by himself and very reticent to any interventions or assistance but over the last 24 hours has fallen several times requiring even EMS evaluation, will admit to medical surgical floor, maintain on fall precautions, PT, OT, case management consultation for discharge planning as well as per discussion with patient and family request for [facility]. DC'd lorazepam B12, folate and TSH were unremarkable Possibly may be related with lorazepam which has been held. Continue to hold lorazepam but monitor for evidence of withdrawal symptoms. Plan Hyponatremia, suspected mild hypovolemia: Admission sodium 129, chloride 96, primarily in the past has been normal level, will very judiciously hydrate given underlying CHF previous history noted, repeat CMP in a.m and if appropriate level for him would defer further labs at that time given planned transition to hospice at facility. Hyperglycemia: Mild, glucose 152, given DNR-CC status and patient current preference to transition to Hospice, will defer further work-up. Chronic conditions: * CAD: 08/13/2015 [facility] cardiac catheterization following transfer at that time from [facility] with abnormal stress testing w/ severe 3-vessel disease was found w/ LAD 80% disease throughout 2/3 of the vessel and EF 25% w/ previous stress echo revealing an EF of 45%, plan at that time had been CABG vs. medical therapy; however, post-cath suffered acute CVA. Transitioned to DNR-CC status, currently plan to consult hospice for facility transition. Will continue asa, hypertension regimen, defer statin per patient preference. He has been taken off medications over the years per his preference. * History CVA: Unfortunately happened postcardiac catheterization with sudden onset right sided hemiparesis with tPA administration at that time and transition following to Coumadin therapy with complete resolution of his symptoms and transition to aspirin, Plavix, Coumadin, appropriate hypertensive regimen as well as statin therapy at that time, MRI at that time with scat tered small foci representing embolic process, MRA with stenosis of basilar artery and areas of narrowing in the LVA and right ICA, MRI of the neck at that time with multiple areas of stenosis in the distal vertebral artery and basilar artery as well as atherosclerosis of the right carotid. Patient per records from [facility] had transiently required a mechanical soft diet with honey thickened liquids however he eventually progressed to regular diet without issues per report. * Hypertension, Uncontrolled: Currently will continue coreg, BP notably elevated, will add isosorbide only which he has been on in the past to achieve some modicum of control, but again, awaiting hospice at facility transition so beyond that patient preference may be to discontinue medications. PRN IV hydralazine. * Hyperlipidemia: Not on statin, previously had been, defer given planned hospice transition. * Chronic Kidney Disease Stage III, unclear subtype: Admission BUN/Cr 24/1.55, baseline renal function appears primarily 1.3-1.5, stay, repeat BMP in AM. * Carotid Disease: As noted under Hx CVA, will continue asa only, not on statin, HTN regimen as noted. * Chart reported Hx Hypothyroidism: Not on regimen, TSH will be added to labs, only because certainly if very abnormal, although not expected could be addressed and lead to improved comfort. * Anxiety and Depression: From discussion with family patient does become agitated intermittently, we will continue patient on fluoxetine as well as Ativan regimen cautiously. * Dementia unclear type: From discussion with family and description likely does have some underlying behavioral disturbance history, complicates presentation, maintain on low-dose Ativan as noted as needed and if necessary may consider adding Seroquel if needed low-dose. * Former tobacco use w/ COPD: Not currently on any regimen, as needed albuterol if necessary. * Systolic CHF/Ischemic Cardiomyopathy: Patient previously EF 2014 45% ECHO- >2015 cardiac catheterization EF25%, was in 2015 upon his [facility] discharge on appropriate regimen however he is since de-escalated off therapy with transition to DNRCC status, judiciously hydrating given underlying history, continued on aspirin, Coreg, defer any other regimen addition given patient preference which was also discussed with family. * BPH: Continue patient home Flomax regimen. DVT prophylaxis: Will hold on additional SCDs or chemoprophylaxis given DNRCC status and planned facility hospice transition, also may upset patient per discussion with family. Patient also notes less intervention best. CODE status: Patient ZEYAD is his son and living will is currently in place. Previously his healthcare power of assistant prosecuting attorney had been his however she is sometime ago. Discussed CODE status at length including difference between FULL code, DNR-CCA and DNR-CC status. Following discussions about the differences in these status, requested DNR-CC. The family and patient are interested in Hospice at Facility. Advanced Care Planning 08/08: Greater than 40 minutes of which greater than for percent of time was discussing with the patient's daughter at bedside about his condition. She states that he has changed from a week ago, however, he has had a long history of refusing work with therapy and would not have the drive to continue to do therapy to eventually get back home. She notes that she is not the power of assistant prosecuting attorney and that is her brother and this is been expressed to the patient's brother that he would want to proceed with hospice measures in light of these current situations. 08/09: Hospice discharge but sounds more likely due to financial concerns. We will check some basic labs. Continue with therapy evaluation Allergies/Procedures Done in Hospital Allergies Influenza Virus Vaccines Allergy (Verified 08/06/22 12:00) Anaphylaxis lisinopril Allergy (Verified 08/06/22 12:00) Angioedema Type of Care/Length of Stay Estimated LOS: Convalescent Care Less Than 30 days Type of Care Needed: Skilled Rehab Potential: Fair Prognosis: Fair Additional Orders/Day of Discharge Day of Discharge: 08/11/22 Dietary and Speech Recommendations Dietitian Recommendations/Changes: Will change diet to Regular No Added Salt d/t pmhx Will [facility] w/ [facility] d/t PI to bea buttock and to help maintain stable weight if consumed. RD will order Isac BID to promote wound healing. Discharge Plan Admission Admit Date/Time: 08/06/22 13:28 Primary Reason for Your Visit: debility Attending Provider: Derrell Dallas Primary Care Provider: Derrell Fortune Consulting Providers: Linda Jones ; Smitha Figueroa ; Willy Deleon ; Kennedi Suarez ; Peggy Asif ; Sandra Diallo NP Discharge Orders/Prescriptions Prescriptions: New acetaminophen [Tylenol] 325 mg Tablet 650 mg PO Q4H PRN PRN (Reason: Fever, pain 1-06/13) Qty: 0 0RF isosorbide mononitrate 30 mg Tablet Extended Release 24 Hr 30 mg PO DAILY Qty: 0 0RF melatonin 3 mg Tablet 3 mg PO QHS PRN PRN (Reason: Insomnia) Qty: 0 0RF Ensure Plus High Protein 0.08 gram-1.5 kcal/mL Liquid 120 ml PO TIDCM Qty: 0 0RF Continued carvedilol 25 mg tablet 25 mg PO BID Label Comments: take 1 tablet by mouth every 12 hours garlic 1,000 mg Capsule 1,000 mg PO TID tamsulosin 0.4 mg capsule 0.4 mg PO DINNER Label Comments: take 1 capsule by mouth WITH SUPPER fluoxetine 20 mg capsule 20 mg PO DAILY Label Comments: take 1 capsule by mouth once daily Discontinued lorazepam 1 mg tablet 1 mg PO TID Label Comments: take 1 tablet by mouth three times a day for anxiety or AGITATION lorazepam 1 mg tablet 0.5 mg PO PRN PRN (Reason: anxiety or agitation) Label Comments: take 1 tablet by mouth three times a day for anxiety or AGITATION Referrals / Follow Up: Derrell Fortune MD [Primary Care Provider] - Within 2 Weeks Disposition Disposition (needs filled in before D/C Order can be placed): [facility]
[2022-08-11 09:30] VITALS: BP 106/62; PULSE 64; RESP 14; TEMP 36.6; O2SAT 97
[2022-08-11] MEDS: Senna/Docusate Sodium 1 Tablet PO (09:32)
[2022-08-11] MEDS: FLUoxetine 20 MG Capsule PO (09:32)
[2022-08-11] MEDS: Aspirin 81 MG TAB.CHEW PO (09:32)
[2022-08-11] MEDS: Isosorbide Mononitrate 30 MG Tablet PO (09:32)
[2022-08-11] MEDS: Carvedilol 25 MG Tablet PO ×2 (09:33→20:11)
[2022-08-11] MEDS: Ensure Plus High Protein 120 ML LIQUID PO ×3 (09:34→20:16)
--- NOTE | 2022-08-11 14:07 | CASEMGMT ---
Social Work Precert is still pending with insurance. SW updated pt son in law on status of precert. SW will await insurance authorization for pt to go to [facility]. JOSE J Gomez
[2022-08-11 15:00] VITALS: BP 120/56; PULSE 72; RESP 16; TEMP 36.8; O2SAT 96
[2022-08-11 20:04] VITALS: BP 107/54; PULSE 81; RESP 20; TEMP 36.8; O2SAT 96
[2022-08-11] MEDS: Tamsulosin HCl 0.4 MG Capsule PO (20:12)
[2022-08-11] MEDS: 0.9% Saline Lock 10 ML Syringe IV (20:14)
[2022-08-12 02:12] VITALS: BP 127/64; PULSE 62; RESP 20; TEMP 36.9; O2SAT 95
[2022-08-12] MEDS: Menthol/Lanolin/Calamine/Znox 113 GM Tube 1 APPLIC TOPICAL ×2 (04:30→14:15)
[2022-08-12 05:37] VITALS: BP 167/69; PULSE 66; RESP 18; TEMP 36.5; O2SAT 92
[2022-08-12 05:50] VITALS: BP 167/69; PULSE 66
[2022-08-12] MEDS: hydrALAZINE 20 MG/ML Vial 10 MG IV (05:50)
[2022-08-12] MEDS: 0.9% Saline Lock 10 ML Syringe IV (05:52)
--- NOTE | 2022-08-12 07:08 | PN.HOSP_ITS ---
Subjective Subjective Well. No complaints Objective Data Objective Data Vital Signs: Vital Signs Temp Pulse Resp BP Pulse Ox O2 Del Method O2 Flow Rate 36.5 C L 66 18 167/69 H 92 Room Air 2 08/12/22 05:37 08/12/22 05:50 08/12/22 05:37 08/12/22 05:50 08/12/22 05:37 08/12/22 05:37 08/11/22 06:35 Oxygen Flow Rate (L/min) 2 Oxygen Delivery Method Room Air Weight: 69.8 kg Body Mass Index (BMI) 24.7 Intake & Output: Intake and Output for Last 24 Hours 08/10/22 08/11/22 08/12/22 23:59 23:59 23:59 Intake Total 100 / 100 700 / 700 Output Total 650 / 650 Balance -550 / -550 700 / 700 Lab / Micro Data Result Diagrams: 08/09/22 07:58 08/09/22 07:58 Physical Exam Const alert and no apparent distress Resp normal respiratory effort, no retractions, no use of accessory muscles and clear to auscultation bilaterally Cardio regular rate, regular rhythm, S1 normal heart sound and S2 normal heart sound GI normal to inspection, nondistended, normoactive bowel sounds, soft to palpation, non-tender and non-distended Assessment & Plan Assessment/Plan (1) Adult failure to thrive: PLAN: Frequent Falls, Debility, FTT Adult: Patient has progressively been declining, has been living by himself and very reticent to any interventions or assistance but over the last 24 hours has fallen several times requiring even EMS evaluation, will admit to medical surgical floor, maintain on fall precautions, PT, OT, case management consultation for discharge planning as well as per discussion with patient and family request for [facility]. DC'd lorazepam B12, folate and TSH were unremarkable Possibly may be related with lorazepam which has been held. Continue to hold lorazepam but monitor for evidence of withdrawal symptoms. PLAN: Plan Hyponatremia, suspected mild hypovolemia: Admission sodium 129, chloride 96, primarily in the past has been normal level, will very judiciously hydrate given underlying CHF previous history noted, repeat CMP in a.m and if appropriate level for him would defer further labs at that time given planned transition to hospice at facility. Hyperglycemia: Mild, glucose 152, given DNR-CC status and patient current preference to transition to Hospice, will defer further work-up. Chronic conditions: * CAD: 08/13/2015 [facility] [place] cardiac catheterization following transfer at that time from [facility] with abnormal stress testing w/ severe 3-vessel disease was found w/ LAD 80% disease throughout 2/3 of the vessel and EF 25% w/ previous stress echo revealing an EF of 45%, plan at that time had been CABG vs. medical therapy; however, post-cath suffered acute CVA. Transitioned to DNR-CC status, currently plan to consult hospice for facility transition. Will continue asa, hypertension regimen, defer statin per patient preference. He has been taken off medications over the years per his preference. * History CVA: Unfortunately happened postcardiac catheterization with sudden onset right sided hemiparesis with tPA administration at that time and transition following to Coumadin therapy with complete resolution of his symptoms and transition to aspirin, Plavix, Coumadin, appropriate hypertensive regimen as well as statin therapy at that time, MRI at that time with scattered small foci representing embolic process, MRA with stenosis of basilar artery and areas of narrowing in the LVA and right ICA, MRI of the neck at that time with multiple areas of stenosis in the distal vertebral artery and basilar artery as well as atherosclerosis of the right carotid. Patient per records from [facility] had transiently required a mechanical soft diet with honey thickened liquids however he eventually progressed to regular diet without issues per report. * Hypertension, Uncontrolled: Currently will continue coreg, BP notably elevated, will add isosorbide only which he has been on in the past to achieve some modicum of control, but again, awaiting hospice at facility transition so beyond that patient preference may be to discontinue medications. PRN IV hydralazine. * Hyperlipidemia: Not on statin, previously had been, defer given planned hospice transition. * Chronic Kidney Disease Stage III, unclear subtype: Admission BUN/Cr 24/1.55, baseline renal function appears primarily 1.3-1.5, stay, repeat BMP in AM. * Carotid Disease: As noted under Hx CVA, will continue asa only, not on statin, HTN regimen as noted. * Chart reported Hx Hypothyroidism: Not on regimen, TSH will be added to labs, only because certainly if very abnormal, although not expected could be addressed and lead to improved comfort. * Anxiety and Depression: From discussion with family patient does become agitated intermittently, we will continue patient on fluoxetine as well as Ativan regimen cautiously. * Dementia unclear type: From discussion with family and description likely does have some underlying behavioral disturbance history, complicates presentation, maintain on low-dose Ativan as noted as needed and if necessary may consider adding Seroquel if needed low-dose. * Former tobacco use w/ COPD: Not currently on any regimen, as needed albuterol if necessary. * Systolic CHF/Ischemic Cardiomyopathy: Patient previously EF 2014 45% ECHO- >2014 cardiac catheterization EF25%, was in 2015 upon his [facility] discharge on appropriate regimen however he is since de-escalated off therapy with transition to DNRCC status, judiciously hydrating given underlying history, continued on aspirin, Coreg, defer any other regimen addition given patient preference which was also discussed with family. * BPH: Continue patient home Flomax regimen. DVT prophylaxis: Will hold on additional SCDs or chemoprophylaxis given DNRCC status and planned facility hospice transition, also may upset patient per discussion with family. Patient also notes less intervention best. CODE status: Patient ZEYAD is his son and living will is currently in place. Previously his healthcare power of assistant district attorney had been his however she is sometime ago. Discussed CODE status at length including difference between FULL code, DNR-CCA and DNR-CC status. Following discussions about the differences in these status, requested DNR-CC. The family and patient are interested in Hospice at Facility. Advanced Care Planning 08/08: Greater than 40 minutes of which greater than for percent of time was discussing with the patient's daughter at bedside about his condition. She states that he has changed from a week ago, however, he has had a long history of refusing work with therapy and would not have the drive to continue to do therapy to eventually get back home. She notes that she is not the power of assistant district attorney and that is her brother and this is been expressed to the patient's brother that he would want to proceed with hospice measures in light of these current situations. 08/09: Hospice discharge but sounds more likely due to financial concerns. We will check some basic labs. Continue with therapy evaluation 08/12: Patient overall doing well. Patient's mental status is much more alert. Unclear if the lorazepam was contributing but is very concerning and will continue to hold lorazepam moving forward. Patient is not having any withdrawal symptoms after discontinuation of the lorazepam.
[2022-08-12 08:00] VITALS: O2SAT 96
[2022-08-12 09:13] VITALS: BP 118/49; PULSE 64; RESP 18; TEMP 37; O2SAT 95
[2022-08-12] MEDS: Aspirin 81 MG TAB.CHEW PO (09:15)
[2022-08-12] MEDS: Carvedilol 25 MG Tablet PO (09:15)
[2022-08-12] MEDS: Senna/Docusate Sodium 1 Tablet PO (09:15)
[2022-08-12] MEDS: FLUoxetine 20 MG Capsule PO (09:15)
[2022-08-12] MEDS: Isosorbide Mononitrate 30 MG Tablet PO (09:15)
[2022-08-12] MEDS: Ensure Plus High Protein 120 ML LIQUID PO (09:17)
--- NOTE | 2022-08-12 10:09 | CASEMGMT ---
Discharge Agronomy Manager Johnnie Rodriguez reached out. Pre-cert has been obtained. ALMAZ Chand notified. Justa CABALLERO Hoist Cylinder Loader
--- NOTE | 2022-08-12 10:35 | DS.PCM_ITS ---
Providers Date of Admission: 08/06/22 Primary Care Physician: Dr. Derrell Fortune MD Consultations 08/06/22 16:22 Consult: Hospice / Palliative Care Routine Consulting Provider: [facility] Reason for Consult: Patient interested in Hospice transition to facility ([facility]) EMERGENT Consult: No MD Notified: Yes Date Notified: 08/07/22 Time Notified: 09:05 Method of Notification: Answering Service Reason For Visit: FALLS, FTT ADULT Diagnosis Discharge Diagnosis (1) Adult failure to thrive: Status: Acute Code(s): R62.7 - Adult failure to thrive Plan: Frequent Falls, Debility, FTT Adult: Patient has progressively been declining, has been living by himself and very reticent to any interventions or assistance but over the last 24 hours has fallen several times requiring even EMS evaluation, will admit to medical surgical floor, maintain on fall precautions, PT, OT, case management consultation for discharge planning as well as per discussion with patient and family request for [facility]. DC'd lorazepam B12, folate and TSH were unremarkable Possibly may be related with lorazepam which has been held. Continue to hold lorazepam but monitor for evidence of withdrawal symptoms. Plan Hyponatremia, suspected mild hypovolemia: Admission sodium 129, chloride 96, primarily in the past has been normal level, will very judiciously hydrate given underlying CHF previous history noted, repeat CMP in a.m and if appropriate level for him would defer further labs at that time given planned transition to hospice at facility. Hyperglycemia: Mild, glucose 152, given DNR-CC status and patient current pre ference to transition to Hospice, will defer further work-up. Chronic conditions: * CAD: 08/13/2015 [facility] cardiac catheterization following transfer at that time from [facility] with abnormal stress testing w/ severe 3-vessel disease was found w/ LAD 80% disease throughout 2/3 of the vessel and EF 25% w/ previous stress echo revealing an EF of 45%, plan at that time had been CABG vs. medical therapy; however, post-cath suffered acute CVA. Transitioned to DNR-CC status, currently plan to consult hospice for facility transition. Will continue asa, hypertension regimen, defer statin per patient preference. He has been taken off medications over the years per his preference. * History CVA: Unfortunately happened postcardiac catheterization with sudden onset right sided hemiparesis with tPA administration at that time and transition following to Coumadin therapy with complete resolution of his symp toms and transition to aspirin, Plavix, Coumadin, appropriate hypertensive regimen as well as statin therapy at that time, MRI at that time with scattered small foci representing embolic process, MRA with stenosis of basilar artery and areas of narrowing in the LVA and right ICA, MRI of the neck at that time with multiple areas of stenosis in the distal vertebral artery and basilar artery as well as atherosclerosis of the right carotid. Patient per records from [facility] had transiently required a mechanical soft diet with honey thickened liquids however he eventually progressed to regular diet without issues per report. * Hypertension, Uncontrolled: Currently will continue coreg, BP notably karuna vatshonad, will add isosorbide only which he has been on in the past to achieve some modicum of control, but again, awaiting hospice at facility transition so beyond that patient preference may be to discontinue medications. PRN IV hydralazine. * Hyperlipidemia: Not on statin, previously had been, defer given planned hospice transition. * Chronic Kidney Disease Stage III, unclear subtype: Admission BUN/Cr 24/1.55, baseline renal function appears primarily 1.3-1.5, stay, repeat BMP in AM. * Carotid Disease: As noted under Hx CVA, will continue asa only, not on statin, HTN regimen as noted. * Chart reported Hx Hypothyroidism: Not on regimen, TSH will be added to labs, only because certainly if very abnormal, although not expected could be addressed and lead to improved comfort. * Anxiety and Depression: From discussion with family patient does become agitated intermittently, we will continue patient on fluoxetine as well as Ativan regimen cautiously. * Dementia unclear type: From discussion with family and description likely does have some underlying behavioral disturbance history, complicates presentation, maintain on low-dose Ativan as noted as needed and if necessary may consider adding Seroquel if needed low-dose. * Former tobacco use w/ COPD: Not currently on any regimen, as needed albuterol if necessary. * Systolic CHF/Ischemic Cardiomyopathy: Patient previously EF 2014 45% ECHO- >2015 cardiac catheterization EF25%, was in 2015 upon his [facility] discharge on appropriate regimen however he is since de-escalated off therapy with transition to DNRCC status, judiciously hydrating given underlying history, continued on aspirin, Coreg, defer any other regimen addition given patient preference which was also discussed with family. * BPH: Continue patient home Flomax regimen. DVT prophylaxis: Will hold on additional SCDs or chemoprophylaxis given DNRCC status and planned facility hospice transition, also may upset patient per discussion with family. Patient also notes less intervention best. CODE status: Patient ZEYAD is his son and living will is currently in place. Previously his healthcare power of banking attorney had been his however she is sometime ago. Discussed CODE status at length including difference between FULL code, DNR-CCA and DNR-CC status. Following discussions about the differences in these status, requested DNR-CC. The family and patient are intere sted in Hospice at Facility. Advanced Care Planning 08/08: Greater than 40 minutes of which greater than for percent of time was discussing with the patient's daughter at bedside about his condition. She states that he has changed from a week ago, however, he has had a long history of refusing work with therapy and would not have the drive to continue to do therapy to eventually get back home. She notes that she is not the power of banking attorney and that is her brother and this is been expressed to the patient's brother that he would want to proceed with hospice measures in light of these current situations. 08/09: Hospice discharge but sounds more likely due to financial concerns. We will check some basic labs. Continue with therapy evaluation 08/12: Patient overall doing well. Patient's mental status is much more alert. Unclear if the lorazepam was contributing but is very concerning and will continue to hold lorazepam moving forward. Patient is not having any withdrawal symptoms after discontinuation of the lorazepam. Medications at Discharge Home Medications carvedilol 25 mg tablet 25 mg PO BID 08/06/22 fluoxetine 20 mg capsule 20 mg PO DAILY 08/06/22 garlic 1,000 mg capsule 1,000 mg PO TID 08/06/22 tamsulosin 0.4 mg capsule 0.4 mg PO DINNER 08/06/22 acetaminophen 325 mg tablet (Tylenol) 650 mg PO Q4H PRN PRN Fever, pain 1-06/13 #0 tabs 08/11/22 food supplemt, lactose-reduced 0.08 gram-1.5 kcal/mL oral liquid (Ensure Plus High Protein) 120 ml PO TIDCM #0 mL 08/11/22 isosorbide mononitrate 30 mg tablet,extended release 24 hr 30 mg PO DAILY #0 tabs 08/11/22 melatonin 3 mg tablet 3 mg PO QHS PRN PRN Insomnia #0 tabs 08/11/22 Hospital Course Operations None Procedures None Summary of Care Provided Minutes Spent on Discharge: 24 Weight / BMI Weight Weight: 69.8 kg Body Mass Index (BMI) 24.7 ABG / Lab / Microbiology Data Result Diagrams: 08/09/22 07:58 08/09/22 07:58 Meaningful Use Info Meaningful Use Diagnoses (Choose all that apply): None applicable Discharge Plan Admission Admit Date/Time: 08/06/22 13:28 Primary Reason for Your Visit: debility Attending Provider: Derrell Dallas Primary Care Provider: Derrell Fortune Consulting Providers: Linda Jones ; Smitha Figueroa ; Willy Deleon ; Kennedi Suarez ; Peggy Asif ; Sandra Diallo CUSTOMER EXPERIENCE ANALYST Discharge Orders/Prescriptions Prescriptions: New acetaminophen [Tylenol] 325 mg Tablet 650 mg PO Q4H PRN PRN (Reason: Fever, pain 1-06/13) Qty: 0 0RF isosorbide mononitrate 30 mg Tablet Extended Release 24 Hr 30 mg PO DAILY Qty: 0 0RF melatonin 3 mg Tablet 3 mg PO QHS PRN PRN (Reason: Insomnia) Qty: 0 0RF Ensure Plus High Protein 0.08 gram-1.5 kcal/mL Liquid 120 ml PO TIDCM Qty: 0 0RF Continued carvedilol 25 mg tablet 25 mg PO BID Label Comments: take 1 tablet by mouth every 12 hours garlic 1,000 mg Capsule 1,000 mg PO TID tamsulosin 0.4 mg capsule 0.4 mg PO DINNER Label Comments: take 1 capsule by mouth WITH SUPPER fluoxetine 20 mg capsule 20 mg PO DAILY Label Comments: take 1 capsule by mouth once daily Discontinued lorazepam 1 mg tablet 1 mg PO TID Label Comments: take 1 tablet by mouth three times a day for anxiety or AGITATION lorazepam 1 mg tablet 0.5 mg PO PRN PRN (Reason: anxiety or agitation) Label Comments: take 1 tablet by mouth three times a day for anxiety or AGITATION Referrals / Follow Up: Derrell Fortune MD [Primary Care Provider] - Within 2 Weeks Disposition Disposition (needs filled in before D/C Order can be placed): Detention Facility Charges/Coding Visit Charges OBSV E&M: 02589 Observation care discharge
--- NOTE | 2022-08-12 11:24 | CASEMGMT ---
Contacted [facility] and patient is active with their palliative care program. SW updated.
--- NOTE | 2022-08-12 14:10 | CASEMGMT ---
Addendum entered by Jagruti Charles 08/12/22 14:21: Phone call to [facility] and notified Kath of discharge time. JOSE J Gomez Original Note: Social Work Precert has been obtained and pt can discharge to [facility] today. Physician updated and pt can discharge today. PASRR completed in [facility] and sent along with orders and covid results to [facility] via [facility]. Transportation arranged with [facility] for 3:30 moss picker via cot. Pt's dgt updated of discharge plan and agreeable. [facility] informed that pt is current with [facility]. Nursing notified of discharge time. Disposition: [facility], skilled level of care JOSE J Gomez
--- NOTE | 2022-08-12 15:30 | NURSING ---
Report given to Tony VILLANUEVA at [facility] at this time.
== END 2022-08-12 16:17 | disposition skilled nursing facility (03) ==
LOC: ED 13:37 → MS3 13:49
PROVIDERS: Admitting Provider Family Medicine; Emergency Provider Emergency Medicine; PCP Family Medicine
DX: R62.7 Adult failure to thrive (principal); I69.351 Hemiplegia and hemiparesis following cerebral infarction affecting right dominant side; F03.90 Unspecified dementia, unspecified severity, without behavioral disturbance, psychotic disturbance, mood disturbance, and anxiety; J44.9 Chronic obstructive pulmonary disease, unspecified; I13.0 Hypertensive heart and chronic kidney disease with heart failure and stage 1 through stage 4 chronic kidney disease, or unspecified chronic kidney disease; I50.22 Chronic systolic (congestive) heart failure; N18.30 Chronic kidney disease, stage 3 unspecified; I25.5 Ischemic cardiomyopathy; Z87.891 Personal history of nicotine dependence; I25.10 Atherosclerotic heart disease of native coronary artery without angina pectoris; R53.81 Other malaise; Z66 Do not resuscitate; Z79.899 Other long term (current) drug therapy; N40.0 Benign prostatic hyperplasia without lower urinary tract symptoms; F41.9 Anxiety disorder, unspecified; F32.A Depression, unspecified; E87.1 Hypo-osmolality and hyponatremia; R73.9 Hyperglycemia, unspecified; Z86.39 Personal history of other endocrine, nutritional and metabolic disease
CPT/HCPCS: 36415; 70450; 71045; 80048; 80053; 80076; 81001; 82607; 82746; 84443; 84484; 85025; 87426; 92526; 92610; 93005; 96361; 96374; 96376; 97110; 97116; 97162; 97165; 97530; 97535; 97802; 99218; 99251; 99285; J7030; A4216; G0378; G0463